=== PATIENT | male | born 1980 | race Caucasian/White ===

== ENCOUNTER 2016-09-11 12:05 | Emergency (ER) | payer BC ==
[2016-09-11 12:17] VITALS: RESP 18
--- NOTE | 2016-09-11 13:29 | ED ---
General Adult HPI - General Chief complaint: Chest Pain Stated complaint: Chest Pain Time Seen by Provider: 09/11/16 12:10 Source: EMS, RN notes reviewed, old records reviewed Mode of arrival: EMS - History of Present Illness Initial comments: This is a 36-year-old male to the ER for evaluation. This patient does presents here for evaluation of chest pain. Patient has anterior chest pain. No significant shortness of breath. Patient says some weakness and fatigue for a few days about 2-3 days. Patient has no prior history of cardiac disease. Nonsmoker, no high cholesterol or diabetes. No fevers. Patient was brought in by EMS, EMS did have improvement with pain with nitro - Related Data Home Medications Medication Instructions Recorded Confirmed ALPRAZolam [Xanax] 0.25 mg PO DAILY PRN 09/11/16 09/11/16 FLUoxetine HCL [PROzac] 20 mg PO HS 09/11/16 09/11/16 Allergies Allergy/AdvReac Type Severity Reaction Status Date / Time No Known Allergies Allergy Unverified 09/11/16 13:20 Review of Systems ROS Statement: Those systems with pertinent positive or pertinent negative responses have been documented in the HPI. ROS Other: All systems not noted in ROS Statement are negative. Past Medical History Past Medical History: Thyroid Disorder Additional Past Medical History / Comment(s): hypothryroid - not taking meds any more History of Any Multi-Drug Resistant Organisms: None Reported Past Psychological History: Anxiety, Depression Smoking Status: Never smoker Past Alcohol Use History: Occasional Past Drug Use History: None Reported General Exam General appearance: alert, in no apparent distress Head exam: Present: atraumatic, normocephalic, normal inspection Eye exam: Present: normal appearance, PERRL, EOMI. Absent: scleral icterus, conjunctival injection, periorbital swelling ENT exam: Present: normal exam, mucous membranes moist Neck exam: Present: normal inspection. Absent: tenderness, meningismus, lymphadenopathy Respiratory exam: Present: normal lung sounds bilaterally. Absent: respiratory distress, wheezes, rales, rhonchi, stridor Cardiovascular Exam: Present: regular rate, normal rhythm, normal heart sounds. Absent: systolic murmur, diastolic murmur, rubs, gallop, clicks GI/Abdominal exam: Present: soft, normal bowel sounds. Absent: distended, tenderness, guarding, rebound, rigid Extremities exam: Present: normal inspection, full ROM, normal capillary refill. Absent: tenderness, pedal edema, joint swelling, calf tenderness Back exam: Present: normal inspection Neurological exam: Present: alert, oriented X3, CN II-XII intact Psychiatric exam: Present: normal affect, normal mood Skin exam: Present: warm, dry, intact, normal color. Absent: rash Course Vital Signs 09/11/16 09/11/16 12:08 13:56 Temperature 98.3 F Pulse Rate 76 64 Respiratory 18 18 Rate Blood Pressure 124/81 117/79 O2 Sat by Pulse 92 L 96 Oximetry - Reevaluation(s) Reevaluation #1: 09/11/16 14:45 Patient's patient states the swelling his symptoms remain resolved, I level has improved from 92% Reevaluation #2: 09/11/16 14:45 Patient discussed at length. 15 minutes regarding prognosis and management of heart disease especially with nitro does help symptoms. Patient is not within the hospital at this time would like to follow-up with his family doctor EKG Findings - EKG Comments: EKG Findings:: EKG shows normal sinus rhythm rate of 63, KS 142, QRS 90, QTC 429 Medical Decision Making - Medical Decision Making 36 male the ER for evaluation of chest pain, history of family history of chest pain. Nitro did help pain although was without pain throughout entire emergency department stay, an EKG is normal x-rays normal troponin is negative. Patient would like to be discharged from the will follow-up with outpatient and return if symptoms worsen - Lab Data Result diagrams: 09/11/16 12:12 09/11/16 12:12 Lab Results 09/11/16 09/11/16 09/11/16 Range/Units 12:12 12:12 12:12 WBC 4.4 (3.8-10.6) k/uL RBC 4.55 (4.30-5.90) m/uL Hgb 14.4 (13.0-17.5) gm/dL Hct 40.8 (39.0-53.0) % MCV 89.6 (80.0-100.0) fL MCH 31.6 (25.0-35.0) pg MCHC 35.3 (31.0-37.0) g/dL RDW 12.7 (11.5-15.5) % Plt Count 231 (150-450) k/uL Neutrophils % 71 % Lymphocytes % 17 % Monocytes % 6 % Eosinophils % 3 % Basophils % 1 % Neutrophils # 3.1 (1.3-7.7) k/uL Lymphocytes # 0.8 L (1.0-4.8) k/uL Monocytes # 0.3 (0-1.0) k/uL Eosinophils # 0.1 (0-0.7) k/uL Basophils # 0.0 (0-0.2) k/uL PT (9.0-12.0) sec INR (<1.1) APTT (22.0-30.0) sec D-Dimer (<0.60) mg/L FEU Sodium 140 (137-145) mmol/L Potassium 4.1 (3.5-5.1) mmol/L Chloride 105 (98-107) mmol/L Carbon Dioxide 22 (22-30) mmol/L Anion Gap 13 mmol/L BUN 15 (9-20) mg/dL Creatinine 0.82 (0.66-1.25) mg/dL Est GFR (MDRD) Af Amer >60 (>60 ml/min/1.73 sqM) Est GFR (MDRD) Non-Af >60 (>60 ml/min/1.73 sqM) Glucose 89 (74-99) mg/dL Calcium 9.8 (8.4-10.2) mg/dL Magnesium 1.8 (1.6-2.3) mg/dL Total Bilirubin 1.2 (0.2-1.3) mg/dL AST 22 (17-59) U/L ALT 32 (21-72) U/L Alkaline Phosphatase 67 (38-126) U/L Total Creatine Kinase 42 L (55-170) U/L CK-MB (CK-2) 0.9 (0.0-2.4) ng/mL CK-MB (CK-2) Rel Index 2.1 Troponin I <0.012 (0.000-0.034) ng/mL Total Protein 7.5 (6.3-8.2) g/dL Albumin 4.7 (3.5-5.0) g/dL Lipase 74 (23-300) U/L //17 Range/Units 12:12 WBC (3.8-10.6) k/uL RBC (4.30-5.90) m/uL Hgb (13.0-17.5) gm/dL Hct (39.0-53.0) % MCV (80.0-100.0) fL MCH (25.0-35.0) pg MCHC (31.0-37.0) g/dL RDW (11.5-15.5) % Plt Count (150-450) k/uL Neutrophils % % Lymphocytes % % Monocytes % % Eosinophils % % Basophils % % Neutrophils # (1.3-7.7) k/uL Lymphocytes # (1.0-4.8) k/uL Monocytes # (0-1.0) k/uL Eosinophils # (0-0.7) k/uL Basophils # (0-0.2) k/uL PT 10.8 (9.0-12.0) sec INR 1.1 (<1.1) APTT 24.6 (22.0-30.0) sec D-Dimer 0.19 (<0.60) mg/L FEU Sodium (137-145) mmol/L Potassium (3.5-5.1) mmol/L Chloride (98-107) mmol/L Carbon Dioxide (22-30) mmol/L Anion Gap mmol/L BUN (9-20) mg/dL Creatinine (0.66-1.25) mg/dL Est GFR (MDRD) Af Amer (>60 ml/min/1.73 sqM) Est GFR (MDRD) Non-Af (>60 ml/min/1.73 sqM) Glucose (74-99) mg/dL Calcium (8.4-10.2) mg/dL Magnesium (1.6-2.3) mg/dL Total Bilirubin (0.2-1.3) mg/dL AST (17-59) U/L ALT (21-72) U/L Alkaline Phosphatase (38-126) U/L Total Creatine Kinase (55-170) U/L CK-MB (CK-2) (0.0-2.4) ng/mL CK-MB (CK-2) Rel Index Troponin I (0.000-0.034) ng/mL Total Protein (6.3-8.2) g/dL Albumin (3.5-5.0) g/dL Lipase (23-300) U/L - Radiology Data Radiology results: report reviewed (Chest x-ray is negative for acute disease), image reviewed Disposition Clinical Impression: Chest pain Disposition: HOME SELF-CARE Condition: Good Instructions: Chest Pain (ED) Referrals: Raúl Cho MD [Primary Care Provider] - 1-2 days
[2016-09-11] MEDS ORDERED: SODIUM CHLORIDE 0.9% 1,000 ML IV STA (13:31)
[2016-09-11 13:52] LABS: Basophils % (A) 1 %; CH 31.8; CHCM 35.6; Eosinophils # (A) 0.1 k/uL (0-0.7); Eosinophils % (A) 3 %; HCT 40.8 % (39.0-53.0); HDW 2.77; HGB 14.4 gm/dL (13.0-17.5); Luc # (Auto) 0.07; Luc % (Auto) 2; Lymphocytes # (A) 0.8 k/uL (1.0-4.8); Lymphocytes % (A) 17 %; MCH 31.6 pg (25.0-35.0); MCHC 35.3 g/dL (31.0-37.0); MCV 89.6 fL (80.0-100.0); Mean Platelet Volume 7.4; Monocytes # (A) 0.3 k/uL (0-1.0); Monocytes % (A) 6 %; Neutrophils # (A) 3.1 k/uL (1.3-7.7); Neutrophils % (A) 71 %; RBC 4.55 m/uL (4.30-5.90); RDW 12.7 % (11.5-15.5); WBC 4.4 k/uL (3.8-10.6); WBC (Perox) 4.42
--- NOTE | 2016-09-11 13:54 | XR ---
EXAMINATION TYPE: XR chest 2V DATE OF EXAM: 09/11/2016 1:49 PM COMPARISON: NONE TECHNIQUE: PA and lateral views submitted. HISTORY: Weakness FINDINGS: The lungs are clear and there is no pneumothorax, pleural effusion, or focal pneumonia. Pulmonary a rteries are prominent in size. No overt failure. IMPRESSION: 1. No acute process. Prominent pulmonary arteries can be seen with pulmonary arterial hypertension. U nderlying adenopathy not entirely excluded consider follow-up CT chest.
[2016-09-11 13:59] LABS: INR 1.1 (<1.1); Partial Thromboplastin Time 24.6 sec (22.0-30.0); Prothrombin Time 10.8 sec (9.0-12.0)
[2016-09-11 14:03] LABS: ALT 32 U/L (21-72); AST 22 U/L (17-59); Alkaline Phosphatase 67 U/L (38-126); Anion Gap 13 mmol/L; Blood Urea Nitrogen 15 mg/dL (9-20); Calcium 9.8 mg/dL (8.4-10.2); Carbon Dioxide 22 mmol/L (22-30); Chloride 105 mmol/L (98-107); Glucose 89 mg/dL (74-99); Magnesium 1.8 mg/dL (1.6-2.3); Non-African American GFR(MDRD) >60 (>60 ml/min/1.73 sqM); Potassium 4.1 mmol/L (3.5-5.1); Sodium 140 mmol/L (137-145); Total Bilirubin 1.2 mg/dL (0.2-1.3); Total Protein 7.5 g/dL (6.3-8.2)
[2016-09-11 14:11] LABS: Creatine Kinase 42 U/L (55-170)
[2016-09-11 14:23] LABS: Creatine Kinase MB 0.9 ng/mL (0.0-2.4); Troponin I <0.012 ng/mL (0.000-0.034)
[2016-09-11 15:11] VITALS: BP 127/69; PULSE 67; TEMP 97.8
== END 2016-09-11 15:11 | disposition home or self-care (01) ==
LOC: EC 12:05
DX: R07.89 Other chest pain (principal); R53.1 Weakness; F32.9 Major depressive disorder, single episode, unspecified; F41.9 Anxiety disorder, unspecified; Z79.899 Other long term (current) drug therapy; Z82.49 Family history of ischemic heart disease and other diseases of the circulatory system
CPT/HCPCS: 36415; 71020; 80053; 82550; 82553; 83690; 83735; 84484; 85025; 85379; 85610; 85730; 93005; 96360; 99285

== ENCOUNTER → 2016-10-01 | Outpatient (CLI) | payer BC ==
--- NOTE | 2016-10-12 16:02 | CT ---
EXAMINATION TYPE: CT chest w con DATE OF EXAM: 10/01/2016 COMPARISON: Prior CT chest 03/09/2016 HISTORY: Follow up swollen lymph nodes from prior study per patient CT DLP: 522.4 mGycm Automated exposure control for dose reduction was used. CONTRAST: CT scan of the chest is performed with IV Contrast, patient injected with 100 mL of Omnipaque 300. FINDINGS: LUNGS: The lungs are remarkable for nodule in the lingula which is stable measuring approximately 6 m m. Apical nodular density may be insurance representative of small amount of pleural thickening is likely uncha nged. There is no pleural effusion or pneumothorax seen. The tracheobronchial tree is patent. MEDIASTINUM: Hilar adenopathy, subcarinal nodes are again seen, abnormal nodes present in the prevasc ular space, precarinal and retrocaval pretracheal region as on prior exam. No axillary adenopathy. AORTA: No additional significant abnormality is seen. OTHER: Small retroperitoneal nodes are also present. IMPRESSION: Findings could represent granulomatous disease either infectious or noninfectious, consi amado sarcoid. Follow-up is recommended.
== END | disposition home or self-care (01) ==
LOC: RADCTMAIN 18:48
PROVIDERS: ATTEND Internal Medicine Critical Care Medicine
DX: R59.0 Localized enlarged lymph nodes (principal)
CPT/HCPCS: 71260; Q9967

== ENCOUNTER → 2016-10-21 | Outpatient (CLI) | payer BC ==
[2016-10-21 11:18] LABS: ALT 36 U/L (21-72); AST 22 U/L (17-59); Alkaline Phosphatase 84 U/L (38-126); Anion Gap 11 mmol/L; Blood Urea Nitrogen 23 mg/dL (9-20); Calcium 9.8 mg/dL (8.4-10.2); Carbon Dioxide 24 mmol/L (22-30); Chloride 106 mmol/L (98-107); Glucose 92 mg/dL (74-99); Non-African American GFR(MDRD) >60 (>60 ml/min/1.73 sqM); Potassium 4.8 mmol/L (3.5-5.1); Sodium 141 mmol/L (137-145); Total Bilirubin 0.9 mg/dL (0.2-1.3); Total Protein 7.7 g/dL (6.3-8.2)
== END | disposition home or self-care (01) ==
LOC: LABWHC1 10:34
PROVIDERS: ATTEND Internal Medicine Critical Care Medicine
DX: D86.9 Sarcoidosis, unspecified (principal); R59.0 Localized enlarged lymph nodes
CPT/HCPCS: 36415; 80053; 82164; 85652

== ENCOUNTER 2016-11-04 09:48 | Day surgery (SDC) | payer BC ==
[2016-11-02 08:47] VITALS: BMI 33.0
[~2016-11-04 09:48] MED LIST: DEXAMETHASONE SOD PHOSPHATE 10 MG/ML 1 ML VIAL IV ONE; LIDOCAINE 1% 20 ML VIAL (10MG/ML) FOR IV START INTRADERMA PRN; ONDANSETRON 4 MG/2 ML VIAL IVP ONE; Pre Op ABX Message 1 EACH MISC MISCELLANE ONE; SCOPOLAMINE 1.5MG/72HR PATCH TRANSDERM ONE
[2016-11-04] MEDS ORDERED: LIDOCAINE 1% 20 ML VIAL (10MG/ML) FOR IV START INTRADERMA ONE (10:02)
[2016-11-04] MEDS: LACTATED RINGERS 1,000 ML IV SCH ×3 (10:02→10:47)
[2016-11-04 10:16] LABS: Basophils % (A) 1 %; CH 32.1; CHCM 35.3; Eosinophils # (A) 0.2 k/uL (0-0.7); Eosinophils % (A) 4 %; HCT 43.3 % (39.0-53.0); HDW 2.75; Luc # (Auto) 0.06; Luc % (Auto) 1; Lymphocytes # (A) 0.8 k/uL (1.0-4.8); Lymphocytes % (A) 15 %; MCH 31.6 pg (25.0-35.0); MCHC 34.6 g/dL (31.0-37.0); MCV 91.4 fL (80.0-100.0); Mean Platelet Volume 7.3; Monocytes # (A) 0.4 k/uL (0-1.0); Monocytes % (A) 7 %; Neutrophils # (A) 3.7 k/uL (1.3-7.7); Neutrophils % (A) 73 %; RBC 4.74 m/uL (4.30-5.90); RDW 13.6 % (11.5-15.5); WBC 5.1 k/uL (3.8-10.6); WBC (Perox) 4.69
[2016-11-04] MEDS ORDERED: ceFAZolin 2 GM in SODIUM CHLORIDE 0.9% 100 ML IVPB STA (10:38)
[2016-11-04] MEDS ORDERED: NEOSTIGMINE 1 MG/ML 10 ML VIAL ONE (10:47)
[2016-11-04] MEDS ORDERED: MIDAZOLAM 2 MG/2 ML VIAL ONE (10:47)
[2016-11-04] MEDS ORDERED: fentaNYL (PF) 50 MCG/ML 2 ML AMP ONE (10:47)
[2016-11-04] MEDS ORDERED: SUCCINYLCHOLINE CHLORIDE 100 MG/5 ML SYR IV ONE (10:47)
[2016-11-04] MEDS ORDERED: GLYCOPYRROLATE 0.2 MG/ML 2 ML VIAL ONE (10:47)
[2016-11-04] MEDS ORDERED: PROPOFOL 10 MG/ML 20 ML VIAL IV ONE (10:47)
[2016-11-04] MEDS ORDERED: ROCURONIUM BROMIDE 10 MG/ML 10 ML VIAL IV ONE (10:47)
[2016-11-04] MEDS ORDERED: ePHEDrine 50 MG/ML 1 ML AMP ONE (10:47)
[2016-11-04] MEDS ORDERED: LIDOCAINE 1% INJ 10MG/ML (20 ML MDV) ONE (10:47)
[2016-11-04] MEDS ORDERED: LACTATED RINGERS 1,000 ML IV ONE ×2 (12:18→14:12)
[2016-11-04 13:23] VITALS: TEMP 97.4
[2016-11-04] MEDS: HYDROmorphone 1 MG/ML 1 ML SYRINGE IVP PRN ×4 (13:25→13:48)
--- NOTE | 2016-11-04 13:49 | XR ---
EXAMINATION TYPE: XR chest 1V portable DATE OF EXAM: 11/04/2016 COMPARISON: 09/11/2016 HISTORY: Lymphadenopathy TECHNIQUE: Single frontal view of the chest is obtained. FINDINGS: Persistent bilateral hilar and mediastinal enlargement. The heart is enlarged. No pleural effusion. No pneumothorax. Arthropathy of the shoulders. No overt failure. IMPRESSION: 1. Bilateral hilar and mediastinal enlargement correlate for adenopathy. Findings appear increased fr om previous exam.
[2016-11-04 14:46] VITALS: RESP 18
[2016-11-04] MEDS ORDERED: HYDROcodone/APAP 5-325MG 1 EACH TAB PO ONE (14:49)
[2016-11-04 16:05] VITALS: BP 136/74; PULSE 75
--- NOTE | 2016-11-05 09:56 | OP ---
DATE OF SURGERY: 11/04/2016 PREOPERATIVE DIAGNOSIS: Mediastinal lymphadenopathy. POSTOPERATIVE DIAGNOSIS: Mediastinal lymphadenopathy. PROCEDURE: Mediastinoscopy with lymph node biopsy. SURGEON: Lv Boogie M.D. SASH REPAIRER: None. ANESTHESIA: General anesthesia. COMPLICATIONS: None. ESTIMATED BLOOD LOSS: Less than 20 mL. SPECIMEN: "4R" lymph nodes. INDICATIONS: The patient is a 36 year old male who was found to have mediastinal lymphadenopathy on CT scan of the chest. Mediastinoscopy with lymph node biopsy was requested. The risks, benefits and alternatives of the procedure were discussed with the patient. All questions were answered. Consent obtained. FINDINGS: Enlarged, firm lymph nodes were noted in Stage 4R. Frozen section was consistent with granuloma. PROCEDURE IN DETAIL: The patient was taken to the operating room and placed supine on the operating room table. After administration of general anesthesia , he was prepped and draped in the usual sterile fashion. A cervical collar incision was created one fingerbreadth above the sternal notch. Dissection was taken down through the subcutaneous tissue and fat. Strap muscles were divided in the midline. The trachea was encountered. The pretracheal fascia was incised. Blunt dissection was then performed in the pretracheal space below the sternum and below the innominate artery. The mediastinoscope was then inserted. It was attached to the video screen. Blunt dissection was performed to the right of the trachea in station 4R. Large firm appearing lymph nodes were identified. A needle was inserted and then aspirated to ensure no return of blood. Multiple biopsies were obtained in this area. A sample was sent to pathology and frozen section was consistent with granulomatous disease. The pathologist felt that this was benign tissue. The remainder of the specimen was then sent for permanent as well as microbiology. Hemostasis was assured. The wound was then closed in layers. Sterile dressing was applied. The patient appeared to tolerate the procedure well. There were no immediate complications. He returned to the recovery room in stable condition. VERA
== END 2016-11-04 16:08 | disposition home or self-care (01) ==
LOC: OR 09:48
PROVIDERS: ATTEND Surgery
DX: I89.8 Other specified noninfective disorders of lymphatic vessels and lymph nodes (principal); E78.5 Hyperlipidemia, unspecified; F41.9 Anxiety disorder, unspecified; Z79.899 Other long term (current) drug therapy; Z87.891 Personal history of nicotine dependence
CPT/HCPCS: 88305; 85025; 88312; 88331; 87070; 87205; 87075; 87116; 87102; 87206; 71010; 38500; J2250; J1100; J2710; J0690; J2405; J2001; J3010; J1170; J0330; J2704

== ENCOUNTER 2016-11-12 00:37 | Observation (INO) | payer BC ==
[2016-11-12 00:44] VITALS: RESP 18
[2016-11-12] MEDS ORDERED: NITROGLYCERIN OINT 1 INCH/GM PACKET TOPICAL STA (01:17)
[2016-11-12] MEDS ORDERED: ASPIRIN 81 MG CHEW PO STA (01:17)
--- NOTE | 2016-11-12 01:21 | ED ---
General Adult HPI - General Chief complaint: Chest Pain Stated complaint: Chest Pain Time Seen by Provider: 11/12/16 00:53 Source: patient, family, EMS, RN notes reviewed Mode of arrival: EMS Limitations: no limitations - History of Present Illness Initial comments: Patient is a pleasant 36-year-old male presenting to the emergency department complaining of chest discomfort. Onset of symptoms was less than an hour prior to arrival. Patient was lying in bed with sharp discomfort. Patient was a little bit sweaty. No dyspnea or nausea. Symptoms lasted around a half an hour and have resolved. There was some radiation towards left arm. Patient did have similar symptoms previously and was evaluated in the with negative evaluation. Patient did recently have mediastinoscopy done last week for lymph node evaluation. Patient was started on antibiotics yesterday for possible infection of the affected site. Currently patient is symptom-free. Patient has had 2 CT scans done of his chest in the last year. - Related Data Home Medications Medication Instructions Recorded Confirmed ALPRAZolam [Xanax] 0.25 mg PO DAILY PRN 09/11/16 11/04/16 FLUoxetine HCL [PROzac] 40 mg PO HS 11/02/16 11/04/16 Previous Rx's Medication Instructions Recorded HYDROcodone/APAP 5-325MG [[place] 1 tab PO Q4HR PRN #20 tab 11/04/16 5-325] Allergies Allergy/AdvReac Type Severity Reaction Status Date / Time No Known Allergies Allergy Unverified 11/12/16 00:44 Review of Systems ROS Statement: Those systems with pertinent positive or pertinent negative responses have been documented in the HPI. ROS Other: All systems not noted in ROS Statement are negative. Constitutional: Denies: fever, chills Eyes: Denies: eye pain ENT: Denies: ear pain Respiratory: Denies: dyspnea Cardiovascular: Reports: chest pain Endocrine: Denies: fatigue Gastrointestinal: Denies: abdominal pain, nausea Genitourinary: Denies: dysuria Musculoskeletal: Denies: back pain Skin: Reports: rash (Mild redness in the upper sternal region) Neurological: Denies: weakness Past Medical History Past Medical History: Thyroid Disorder Additional Past Medical History / Comment(s): hypothryroid - not taking meds any more History of Any Multi-Drug Resistant Organisms: None Reported Additional Past Surgical History / Comment(s): neck biopsy 10/2016 Past Psychological History: Anxiety, Depression Smoking Status: Never smoker Past Alcohol Use History: Occasional Past Drug Use History: None Reported General Exam Limitations: no limitations General appearance: alert, in no apparent distress Head exam: Present: atraumatic Eye exam: Present: normal appearance, PERRL ENT exam: Present: normal oropharynx Neck exam: Present: normal inspection Respiratory exam: Present: normal lung sounds bilaterally, other (Upper sternum with horizontal incision with mild redness and swelling). Absent: chest wall tenderness Cardiovascular Exam: Present: regular rate, normal rhythm Expanded Peripheral pulses: 2+: Radial (R), Radial (L), Posterior Tibialis (R), Posterior Tibialis (L) GI/Abdominal exam: Present: soft. Absent: tenderness Extremities exam: Present: normal inspection. Absent: pedal edema, calf tenderness Neurological exam: Present: alert Psychiatric exam: Present: normal affect, normal mood Skin exam: Present: normal color Course Vital Signs 11/12/16 11/12/16 11/12/16 00:39 01:39 01:44 Temperature 97.8 F Pulse Rate 18 L 67 65 Respiratory 18 18 18 Rate Blood Pressure 129/79 129/79 126/78 O2 Sat by Pulse 95 99 97 Oximetry 11/12/16 11/12/16 02:02 02:22 Temperature 98.6 F Pulse Rate 65 83 Respiratory 18 Rate Blood Pressure 119/71 116/67 O2 Sat by Pulse 95 95 Oximetry EKG Findings - EKG Comments: EKG Findings:: Normal sinus rhythm 69. [place] 134. QRS 90. QT 420. QTc 450. Normal axis. Normal QRS. Normal ST-T. Medical Decision Making - Medical Decision Making Patient reexamined and resting comfortably in bed. Patient updated on results and plan. Case discussed with Dr. Corea, who will admit for Dr. gilbert, who covers for Dr. Cho. - Lab Data Result diagrams: 11/12/16 00:50 11/12/16 00:50 Lab Results 11/12/16 11/12/16 11/12/16 Range/Units 00:50 00:50 00:50 WBC 5.3 (3.8-10.6) k/uL RBC 4.25 L (4.30-5.90) m/uL Hgb 13.5 (13.0-17.5) gm/dL Hct 38.4 L (39.0-53.0) % MCV 90.2 (80.0-100.0) fL MCH 31.7 (25.0-35.0) pg MCHC 35.2 (31.0-37.0) g/dL RDW 13.6 (11.5-15.5) % Plt Count 248 (150-450) k/uL Neutrophils % 62 % Lymphocytes % 24 % Monocytes % 8 % Eosinophils % 3 % Basophils % 1 % Neutrophils # 3.3 (1.3-7.7) k/uL Lymphocytes # 1.3 (1.0-4.8) k/uL Monocytes # 0.4 (0-1.0) k/uL Eosinophils # 0.2 (0-0.7) k/uL Basophils # 0.0 (0-0.2) k/uL PT (9.0-12.0) sec INR (<1.2) APTT (22.0-30.0) sec D-Dimer (<0.60) mg/L FEU Sodium 137 (137-145) mmol/L Potassium 3.9 (3.5-5.1) mmol/L Chloride 103 (98-107) mmol/L Carbon Dioxide 21 L (22-30) mmol/L Anion Gap 13 mmol/L BUN 28 H (9-20) mg/dL Creatinine 0.80 (0.66-1.25) mg/dL Est GFR (MDRD) Af Amer >60 (>60 ml/min/1.73 sqM) Est GFR (MDRD) Non-Af >60 (>60 ml/min/1.73 sqM) Glucose 85 (74-99) mg/dL Calcium 9.7 (8.4-10.2) mg/dL Magnesium 1.7 (1.6-2.3) mg/dL Total Bilirubin 0.9 (0.2-1.3) mg/dL AST 26 (17-59) U/L ALT 54 (21-72) U/L Alkaline Phosphatase 79 (38-126) U/L Total Creatine Kinase 42 L (55-170) U/L CK-MB (CK-2) 1.0 (0.0-2.4) ng/mL CK-MB (CK-2) Rel Index 2.4 Troponin I <0.012 (0.000-0.034) ng/mL Total Protein 7.1 (6.3-8.2) g/dL Albumin 4.4 (3.5-5.0) g/dL 11/12/16 Range/Units 00:50 WBC (3.8-10.6) k/uL RBC (4.30-5.90) m/uL Hgb (13.0-17.5) gm/dL Hct (39.0-53.0) % MCV (80.0-100.0) fL MCH (25.0-35.0) pg MCHC (31.0-37.0) g/dL RDW (11.5-15.5) % Plt Count (150-450) k/uL Neutrophils % % Lymphocytes % % Monocytes % % Eosinophils % % Basophils % % Neutrophils # (1.3-7.7) k/uL Lymphocytes # (1.0-4.8) k/uL Monocytes # (0-1.0) k/uL Eosinophils # (0-0.7) k/uL Basophils # (0-0.2) k/uL PT 10.5 (9.0-12.0) sec INR 1.0 (<1.2) APTT 24.8 (22.0-30.0) sec D-Dimer 0.46 (<0.60) mg/L FEU Sodium (137-145) mmol/L Potassium (3.5-5.1) mmol/L Chloride (98-107) mmol/L Carbon Dioxide (22-30) mmol/L Anion Gap mmol/L BUN (9-20) mg/dL Creatinine (0.66-1.25) mg/dL Est GFR (MDRD) Af Amer (>60 ml/min/1.73 sqM) Est GFR (MDRD) Non-Af (>60 ml/min/1.73 sqM) Glucose (74-99) mg/dL Calcium (8.4-10.2) mg/dL Magnesium (1.6-2.3) mg/dL Total Bilirubin (0.2-1.3) mg/dL AST (17-59) U/L ALT (21-72) U/L Alkaline Phosphatase (38-126) U/L Total Creatine Kinase (55-170) U/L CK-MB (CK-2) (0.0-2.4) ng/mL CK-MB (CK-2) Rel Index Troponin I (0.000-0.034) ng/mL Total Protein (6.3-8.2) g/dL Albumin (3.5-5.0) g/dL - Radiology Data Radiology results: image reviewed (Chest x-ray shows bilateral hilar enlargement , likely adenopathy.) Disposition Clinical Impression: Chest pain Disposition: ADMITTED IP TO THIS [facility] Referrals: Raúl Cho MD [Primary Care Provider] - 1-2 days Decision Time: 03:16
[2016-11-12] MEDS ORDERED: NITROGLYCERIN SL TABS 0.4 MG TAB SUBLINGUAL STA (01:41)
[2016-11-12 01:42] LABS: Basophils % (A) 1 %; CH 32.3; CHCM 35.9; Eosinophils # (A) 0.2 k/uL (0-0.7); Eosinophils % (A) 3 %; HCT 38.4 % (39.0-53.0); HGB 13.5 gm/dL (13.0-17.5); Luc # (Auto) 0.16; Luc % (Auto) 3; Lymphocytes # (A) 1.3 k/uL (1.0-4.8); Lymphocytes % (A) 24 %; MCH 31.7 pg (25.0-35.0); MCHC 35.2 g/dL (31.0-37.0); MCV 90.2 fL (80.0-100.0); Mean Platelet Volume 7.5; Monocytes # (A) 0.4 k/uL (0-1.0); Monocytes % (A) 8 %; Neutrophils # (A) 3.3 k/uL (1.3-7.7); Neutrophils % (A) 62 %; RBC 4.25 m/uL (4.30-5.90); RDW 13.6 % (11.5-15.5); WBC 5.3 k/uL (3.8-10.6); WBC (Perox) 4.94
[2016-11-12 01:56] LABS: Partial Thromboplastin Time 24.8 sec (22.0-30.0); Prothrombin Time 10.5 sec (9.0-12.0)
[2016-11-12 02:05] LABS: ALT 54 U/L (21-72); AST 26 U/L (17-59); Alkaline Phosphatase 79 U/L (38-126); Anion Gap 13 mmol/L; Blood Urea Nitrogen 28 mg/dL (9-20); Calcium 9.7 mg/dL (8.4-10.2); Carbon Dioxide 21 mmol/L (22-30); Chloride 103 mmol/L (98-107); Glucose 85 mg/dL (74-99); Magnesium 1.7 mg/dL (1.6-2.3); Non-African American GFR(MDRD) >60 (>60 ml/min/1.73 sqM); Potassium 3.9 mmol/L (3.5-5.1); Sodium 137 mmol/L (137-145); Total Bilirubin 0.9 mg/dL (0.2-1.3); Total Protein 7.1 g/dL (6.3-8.2)
[2016-11-12 02:08] LABS: Creatine Kinase 42 U/L (55-170)
[2016-11-12 02:19] LABS: Troponin I <0.012 ng/mL (0.000-0.034)
--- NOTE | 2016-11-12 02:35 | XR ---
EXAM: XR Chest, 2 Views CLINICAL HISTORY: left sided chest pain today radiating to left arm, history of enlarged heart, biopses of swollen lymph nodes in chest, history of sarcoidosis TECHNIQUE: Frontal and lateral views of the chest. COMPARISON: Chest x-ray 11/04/16 FINDINGS: Lungs: Slightly hypoventilatory lungs. Lungs clear. Pleural space: Unremarkable. No pneumothorax. Heart: Unremarkable. No cardiomegaly. Mediastinum: Unremarkable. Bones/joints: Unremarkable. Lymph nodes: Bilateral hilar enlargement, likely adenopathy, is slightly increased from prior study. IMPRESSION: 1. Slightly hypoventilatory lungs. Lungs clear. 2. Bilateral hilar enlargement, likely adenopathy, is slightly increased from prior study.
[2016-11-12] MEDS ORDERED: NITROGLYCERIN SL TABS 0.4 MG TAB SUBLINGUAL PRN (03:16)
[2016-11-12 04:20] VITALS: BMI 33.7
[2016-11-12] MEDS: NITROGLYCERIN OINT 1 INCH/GM PACKET TOPICAL SCH ×2 (05:55→13:37)
[2016-11-12 07:54] LABS: Creatine Kinase 36 U/L (55-170)
[2016-11-12 08:07] LABS: Troponin I <0.012 ng/mL (0.000-0.034)
--- NOTE | 2016-11-12 10:42 | P.CRDCN ---
History of Present Illness Consult date: 11/12/16 History of present illness: This is a 36-year-old gentleman with history of hypercholesterolemia who had a mediastinal biopsy for enlarged lymph nodes about a week or so ago. Patient woke up last night with recurrent chest pains. The pain is felt in the precordial area and sharp in nature, lasting about 20 minutes or so. Patient became very anxious. Denied any nausea vomiting or sweating. He might have been mildly short of breath. After a few recurrence of the pain patient came to the emergency room. Since admission here patient hasn't had any pains. He doesn't think the pain is related to the recent surgery. Doesn't increase on deep breathing or movements of the chest. His EKGs did not reveal any acute changes. Cardiac enzymes studies are negative. Patient is being scheduled for a regular stress test and echocardiogram. He was concerned that previous chest x-ray suggestive that his heart is enlarged. If the tests are negative, patient could be discharged home. Review of Systems As per the chart Past Medical History Past Medical History: Thyroid Disorder Additional Past Medical History / Comment(s): hypothryroid - not taking meds any more History of Any Multi-Drug Resistant Organisms: None Reported Additional Past Surgical History / Comment(s): neck biopsy 10/2016 Past Anesthesia/Blood Transfusion Reactions: No Reported Reaction Smoking Status: Former smoker - Past Family History Father Additional Family Medical History / Comment(s): arthritis Mother Family Medical History: Cancer Additional Family Medical History / Comment(s): breast CA Medications and Allergies Home Medications Medication Instructions Recorded Confirmed Type ALPRAZolam [Xanax] 0.25 mg PO DAILY PRN 09/11/16 11/12/16 History FLUoxetine HCL [PROzac] 40 mg PO HS 11/02/16 11/12/16 History Cephalexin [Keflex] 500 mg PO Q12HR 11/12/16 11/12/16 History Allergies Allergy/AdvReac Type Severity Reaction Status Date / Time No Known Allergies Allergy Verified 11/12/16 07:48 Physical Exam Vitals: Vital Signs Temp Pulse Pulse Resp BP BP Pulse Ox 11/12/16 08:00 97.7 F 64 18 116/69 96 11/12/16 04:00 98 F 66 18 129/80 96 11/12/16 03:19 98.1 F 65 18 131/75 96 11/12/16 02:22 83 116/67 95 11/12/16 02:02 98.6 F 65 18 119/71 95 11/12/16 01:44 65 18 126/78 97 11/12/16 01:39 67 18 129/79 99 11/12/16 00:39 97.8 F 18 L 18 129/79 95 Intake and Output 11/11/16 11/12/16 11/12/16 22:59 06:59 14:59 Other: # Voids 1 Weight 106.5 kg GENERAL EXAM: Patient is alert and oriented and doesn't appear to be in any acute distress HEENT: Normocephalic. Normal reaction of pupils, equal size, normal range of extraocular motion. No erythema or exudates in the throat. NECK: No masses, no nuchal rigidity. CHEST: No chest wall deformity. LUNGS: Equal air entry with no crackles or wheeze. HEART: S1 and S2 normal with no audible mumurs or gallops. Regular rhythm, femorals equal on both sides.. ABDOMEN: No hepatosplenomegaly, normal bowel sounds, no guarding or rigidity. SKIN: No rashes CENTRAL NERVOUS SYSTEM: No focal deficits. EXTREMITIES: No cyanosis, clubbing or edema. Results 11/12/16 00:50 11/12/16 00:50 Cardiac Enzymes 11/12/16 11/12/16 11/12/16 Range/Units 00:50 00:50 06:59 AST 26 (17-59) U/L CK-MB (CK-2) 1.0 1.0 (0.0-2.4) ng/mL Troponin I <0.012 <0.012 (0.000-0.034) ng/mL Coagulation 11/12/16 Range/Units 00:50 PT 10.5 (9.0-12.0) sec APTT 24.8 (22.0-30.0) sec CBC 11/12/16 Range/Units 00:50 WBC 5.3 (3.8-10.6) k/uL RBC 4.25 L (4.30-5.90) m/uL Hgb 13.5 (13.0-17.5) gm/dL Hct 38.4 L (39.0-53.0) % Plt Count 248 (150-450) k/uL Comprehensive Metabolic Panel 11/12/16 Range/Units 00:50 Sodium 137 (137-145) mmol/L Potassium 3.9 (3.5-5.1) mmol/L Chloride 103 (98-107) mmol/L Carbon Dioxide 21 L (22-30) mmol/L BUN 28 H (9-20) mg/dL Creatinine 0.80 (0.66-1.25) mg/dL Glucose 85 (74-99) mg/dL Calcium 9.7 (8.4-10.2) mg/dL AST 26 (17-59) U/L ALT 54 (21-72) U/L Alkaline Phosphatase 79 (38-126) U/L Total Protein 7.1 (6.3-8.2) g/dL Albumin 4.4 (3.5-5.0) g/dL Current Medications Generic Name Dose Route Start Last Admin Trade Name Freq PRN Reason Stop Dose Admin Aspirin 325 mg 11/13/16 09:00 Aspirin PO DAILY [facility] Nitroglycerin 1 inch 11/12/16 06:00 11/12/16 05:55 Nitro-Bid Oint TOPICAL Not Given Q6HR [facility] Nitroglycerin 0.4 mg 11/12/16 03:16 Nitrostat SUBLINGUAL Q5M PRN Chest Pain Sodium Chloride 10 ml 11/12/16 09:00 Saline Flush IV BID ROBERT Intake and Output 11/11/16 11/12/16 11/12/16 22:59 06:59 14:59 Other: # Voids 1 Weight 106.5 kg 11/12/16 00:50 11/12/16 00:50 EKG Interpretations (text) Sinus rhythm Assessment and Plan (1) Hypercholesteremia Status: Acute (2) Chest pain Status: Acute (3) Mediastinal lymphadenopathy Status: Acute Plan: Patient chest pain appeared to be atypical. Patient will be evaluated by echocardiogram and stress test. Further recommendations depend upon the findings on the tests.
[2016-11-12 12:19] VITALS: BP 112/78; PULSE 68; TEMP 98.1
--- NOTE | 2016-11-12 12:45 | P.STRESS ---
- Stress Test Note Stress Test Results/Findings: Exam Performed: stress test Exam Date: 11/12/16 Reason for Exam: CP Height: 5 ft 10 in Weight: 106.5 kg Protocol: BEN Stage: 3 Duration of Exercise: 7:00 Resting Heart Rate: 76 Resting Blood Pressure: 135/45 Maximum Achieved Heart Rate: 155 Maximum Achieved Blood Pressure: 164/79 85% PMHR: 155 100% PMHR: 182 METS: 8.5 Technologist Comment: Stress Test Results/Findings: Resting EKG shows a normal sinus rhythm with normal ST-T waves. No ST segment depression suggestive of ischemia was noted. No dysrhythmias were noted. She did not complain of any chest pain during the test. Conclusion. The stress EKG is not suggestive of ischemia.
[2016-11-12 13:19] LABS: Creatine Kinase 41 U/L (55-170)
--- NOTE | 2016-11-12 13:27 | ECHOF ---
Referral Reason:Chest pain and cardiomyopathy MEASUREMENTS -------- HEIGHT: 177.8 cm WEIGHT: 106.1 kg BP: 116/69 IVSd: 1.3 cm (0.6 - 1.1) LVIDd: 4.4 cm (3.9 - 5.3) LVPWd: 1.4 cm (0.6 - 1.1) IVSs: 1.5 cm LVIDs: 3.2 cm LVPWs: 1.7 cm Ao Diam: 3.4 cm (2.0 - 3.7) AV Cusp: 2.2 cm (1.5 - 2.6) LA Diam: 2.8 cm (2.7 - 3.8) MV EXCURSION: 20.824 mm (> 18.000) MV EF SLOPE: 189 mm/s (70 - 150) EPSS: 1.6 cm MV E Dominic: 0.98 m/s MV DecT: 185 ms MV A Dominic: 0.72 m/s MV E/A Ratio: 1.36 RAP: 5.00 mmHg RVSP: 25.50 mmHg FINDINGS -------- Sinus rhythm. This was a technically good study. There is mild concentric left ventricular hypertrophy. Overall left ventricular systolic function is normal with, an EF between 55 - 60 %. The right ventricle is normal in size and function. The left atrium is normal in size. The right atrium is normal in size. The aortic valve is trileaflet, and appears structurally normal. No aortic stenosis or regurgitation. Mild mitral regurgitation is present. Mild tricuspid regurgitation present. The right ventricular systolic pressure, as measured by Doppler, is 25.50mmHg. Pulmonic valve appears structurally normal. The aortic root size is normal. The pericardium is normal. CONCLUSIONS -------- 1. Sinus rhythm. 2. Mild tricuspid regurgitation present. 3. The right ventricular systolic pressure, as measured by Doppler, is 25.50mmHg. 4. Pulmonic valve appears structurally normal. 5. The aortic root size is normal. 6. The pericardium is normal. 7. This was a technically good study. 8. There is mild concentric left ventricular hypertrophy. 9. Overall left ventricular systolic function is normal with, an EF between 55 - 60 %. 10. The right ventricle is normal in size and function. 11. The left atrium is normal in size. 12. The right atrium is normal in size. 13. The aortic valve is trileaflet, and appears structurally normal. No aortic stenosis or regurgitation. 14. Mild mitral regurgitation is present. BRANDS EDITOR: Beulah Ruiz RDCS
[2016-11-12 13:32] LABS: Creatine Kinase MB 1.2 ng/mL (0.0-2.4); Troponin I <0.012 ng/mL (0.000-0.034)
--- NOTE | 2016-11-12 14:27 | P.HPIM ---
History of Present Illness This is a 36-year-old gentleman with history of hypercholesterolemia who had a mediastinal biopsy for enlarged lymph nodes about a week ago. Patient woke up last night with recurrent chest pains first episode lasted about 45 minutes and the second one lasted about 20 minutes. The pain is felt in the precordial area and sharp in nature, radiating to the left arm, some shortness of breath every appears to be related to his anxiety denied any lightheadedness. Patient the chest pain is nonpleuritic and not associated with food. . Denied any nausea vomiting or sweating. He might have been mildly short of breath. A Since admission here patient hasn't had any pains. He doesn't think the pain is related to the recent surgery. Doesn't increase on deep breathing or movements of the chest. His EKGs did not reveal any acute changes. Cardiac enzymes studies are negative. Patient underwent stress testing and if that is negative patient will be discharged today ration probably had anxiety and related chest pain. Patient had an echo cardiac exam which did not show any significant abnormality. Review of Systems REVIEW OF SYSTEMS: CONSTITUTIONAL: No fever, no malaise, no fatigue. HEENT: No recent visual problems or hearing problems. Denied any sore throat. CARDIOVASCULAR: No orthopnea, PND, no palpitations, no syncope. PULMONARY: No shortness of breath, no cough, no hemoptysis. GASTROINTESTINAL: No diarrhea, no nausea, no vomiting, no abdominal pain. Normoactive bowel sounds. NEUROLOGICAL: No headaches, no weakness, no numbness. HEMATOLOGICAL: Denies any bleeding or petechiae. GENITOURINARY: Denies any burning micturition, frequency, or urgency. MUSCULOSKELETAL/RHEUMATOLOGICAL: Denies any joint pain, swelling, or any muscle pain. ENDOCRINE: Denies any polyuria or polydipsia. The rest of the 14-point review of systems is negative. Past Medical History Past Medical History: Thyroid Disorder Additional Past Medical History / Comment(s): hypothryroid - not taking meds any more History of Any Multi-Drug Resistant Organisms: None Reported Additional Past Surgical History / Comment(s): neck biopsy 10/2016 Past Anesthesia/Blood Transfusion Reactions: No Reported Reaction Smoking Status: Former smoker - Past Family History Father Additional Family Medical History / Comment(s): arthritis Mother Family Medical History: Cancer Additional Family Medical History / Comment(s): breast CA Medications and Allergies Home Medications Medication Instructions Recorded Confirmed Type ALPRAZolam [Xanax] 0.25 mg PO DAILY PRN 09/11/16 11/12/16 History FLUoxetine HCL [PROzac] 40 mg PO HS 11/02/16 11/12/16 History Cephalexin [Keflex] 500 mg PO Q12HR 11/12/16 11/12/16 History Allergies Allergy/AdvReac Type Severity Reaction Status Date / Time No Known Allergies Allergy Verified 11/12/16 07:48 Physical Exam Vitals: Vital Signs Temp Pulse Pulse Resp BP BP Pulse Ox 11/12/16 12:00 98.1 F 68 18 112/78 94 L 11/12/16 08:00 97.7 F 64 18 116/69 96 11/12/16 04:00 98 F 66 18 129/80 96 11/12/16 03:19 98.1 F 65 18 131/75 96 11/12/16 02:22 83 116/67 95 11/12/16 02:02 98.6 F 65 18 119/71 95 11/12/16 01:44 65 18 126/78 97 11/12/16 01:39 67 18 129/79 99 11/12/16 00:39 97.8 F 18 L 18 129/79 95 Intake and Output 11/11/16 11/12/16 11/12/16 22:59 06:59 14:59 Intake Total 420 Balance 420 Intake: Oral 420 Other: # Voids 1 Weight 106.5 kg PHYSICAL EXAMINATION: GENERAL: The patient is alert and oriented x3, not in any acute distress. Well developed, well nourished. HEENT: Pupils are round and equally reacting to light. EOMI. No scleral icterus. No conjunctival pallor. Normocephalic, atraumatic. No pharyngeal erythema. No thyromegaly. CARDIOVASCULAR: S1 and S2 present. No murmurs, rubs, or gallops. PULMONARY: Chest is clear to auscultation, no wheezing or crackles. ABDOMEN: Soft, nontender, nondistended, normoactive bowel sounds. No palpable organomegaly. MUSCULOSKELETAL: No joint swelling or deformity. EXTREMITIES: No cyanosis, clubbing, or pedal edema. NEUROLOGICAL: Gross neurological examination did not reveal any focal deficits. SKIN: No rashes. Results CBC & Chem 7: 11/12/16 00:50 11/12/16 00:50 Labs: Abnormal Lab Results - Last 24 Hours (Table) 11/12/16 11/12/16 11/12/16 Range/Units 00:50 00:50 00:50 RBC 4.25 L (4.30-5.90) m/uL Hct 38.4 L (39.0-53.0) % Carbon Dioxide 21 L (22-30) mmol/L BUN 28 H (9-20) mg/dL Total Creatine Kinase 42 L (55-170) U/L 11/12/16 11/12/16 Range/Units 06:59 12:48 RBC (4.30-5.90) m/uL Hct (39.0-53.0) % Carbon Dioxide (22-30) mmol/L BUN (9-20) mg/dL Total Creatine Kinase 36 L 41 L (55-170) U/L Assessment and Plan Plan: #1 chest pain, rule out acute coronary syndromes and unstable angina patient underwent stress test that's negative patient will be discharged today. Patient 's chest pain is probably related to his anxiety episode. #2 hypothyroidism #3 obesity: Counseling was provided #4 recent mediastinoscopy for lymph node enlargement, for that follow-up with his primary care physician as an outpatient. For above-mentioned chronic medical problems and wouldn't continue his home medications patient will be discharged today with the stress test is negative
--- NOTE | 2016-11-12 14:27 | P.DS ---
Providers Date of admission: 11/12/16 03:16 Attending physician: Domitila Corea Consults: 11/12/16 03:16 Consult Physician Urgent Consulting Provider: Guido Marcial Consult Reason/Comments: cp Do you want consulting provider notified?: Yes Primary care physician: Raúl Mendoza [facility] Course: Please refer to HPI Plan - Discharge Summary New Discharge Prescriptions: No Action ALPRAZolam [Xanax] 0.25 mg PO DAILY PRN PRN Reason: Anxiety FLUoxetine HCL [PROzac] 40 mg PO HS HYDROcodone/APAP 5-325MG [[place] 5-325] 1 tab PO Q4HR PRN #20 tab PRN Reason: Pain Cephalexin [Keflex] 500 mg PO Q12HR Discharge Medication List ALPRAZolam [Xanax] 0.25 mg PO DAILY PRN 09/11/16 [History] FLUoxetine HCL [PROzac] 40 mg PO HS 11/02/16 [History] HYDROcodone/APAP 5-325MG [[place] 5-325] 1 tab PO Q4HR PRN #20 tab 11/04/16 [Rx] Cephalexin [Keflex] 500 mg PO Q12HR 11/12/16 [History] Follow up Appointment(s)/Referral(s): Raúl Cho MD [Primary Care Provider] - 3 Days Patient Instructions/Handouts: Chest Pain (DC) Discharge Disposition: HOME SELF-CARE
[2016-11-13] MEDS ORDERED: ASPIRIN 325 MG TAB PO SCH (09:00)
== END 2016-11-12 14:57 | disposition home or self-care (01) ==
LOC: EC 00:37 → 3OBS 03:16
PROVIDERS: ADMIT Internal Medicine; ATTEND Internal Medicine
DX: R07.89 Other chest pain (principal); E03.9 Hypothyroidism, unspecified; E66.9 Obesity, unspecified; Z68.33 Body mass index [BMI] 33.0-33.9, adult; R59.0 Localized enlarged lymph nodes; E78.00 Pure hypercholesterolemia, unspecified; Z79.899 Other long term (current) drug therapy; F41.9 Anxiety disorder, unspecified; F32.9 Major depressive disorder, single episode, unspecified; Z87.891 Personal history of nicotine dependence; Z80.3 Family history of malignant neoplasm of breast
CPT/HCPCS: 99285; 36415; 93005; 93017; 93306; 85379; 80053; 82550; 82553; 83735; 84484; 85025; 85610; 85730; 71020; G0378

== ENCOUNTER 2016-11-13 21:06 | Emergency (ER) | payer BC ==
[2016-11-13 21:14] VITALS: BP 133/88; PULSE 67; RESP 18; TEMP 98.1
[2016-11-13] MEDS ORDERED: KETOROLAC 30 MG/ML 1 ML VIAL IVP STA (21:47)
[2016-11-13] MEDS ORDERED: RX INFO: IV CONTRAST WAS GIVEN 1 EACH MISC MISCELLANE PRN (21:47)
--- NOTE | 2016-11-13 22:27 | ED ---
Abdominal Pain HPI - General Chief Complaint: Abdominal Pain Stated Complaint: Abd Pain Time Seen by Provider: 11/13/16 21:26 Source: patient Mode of arrival: ambulatory Limitations: no limitations - History of Present Illness Initial Comments: This 36-year-old white male presents with a complaint of some bilateral lower abdominal as well as bilateral testicular pain which started approximately one day ago. He states that he fell sleep last night and this morning it was better but then it reoccurred. He denies any previous similar incidents. He denies any fevers, chills, nausea, vomiting, diarrhea, constipation. He denies any urinary frequency, urgency, or dysuria. He denies any actual injuries. He states that the pain is fairly severe earlier. He tried a [place] and this seemed to help. He was just discharged from the hospital one day ago after having a negative workup for chest pain. He also had a thoracic biopsy approximate one week ago and was told today that it came back positive for sarcoidosis. He denies any other complaints or modifying factors. He has been able to eat today without any problems. He relates that he was just prescribed some prednisone and another anti-sarcoidosis medication today but has not started taking them as of yet. He also states that he only has 1-2 of his [place] left. - Related Data Home Medications Medication Instructions Recorded Confirmed ALPRAZolam [Xanax] 0.25 mg PO DAILY PRN 09/11/16 11/12/16 FLUoxetine HCL [PROzac] 40 mg PO HS 11/02/16 11/12/16 Cephalexin [Keflex] 500 mg PO Q12HR 11/12/16 11/12/16 Previous Rx's Medication Instructions Recorded HYDROcodone/APAP 5-325MG [[place] 1 tab PO Q4HR PRN #20 tab 11/04/16 5-325] Hydrocodone/Acetaminophen [[place] 1 - 2 each PO Q4HR PRN #20 tab 11/13/16 5-325] Allergies Allergy/AdvReac Type Severity Reaction Status Date / Time No Known Allergies Allergy Verified 11/12/16 07:48 Review of Systems ROS Statement: Those systems with pertinent positive or pertinent negative responses have been documented in the HPI. ROS Other: All systems not noted in ROS Statement are negative. Past Medical History Past Medical History: Thyroid Disorder Additional Past Medical History / Comment(s): sarcoidosis History of Any Multi-Drug Resistant Organisms: None Reported Additional Past Surgical History / Comment(s): neck biopsy 10/2016 Past Anesthesia/Blood Transfusion Reactions: No Reported Reaction Past Psychological History: Anxiety, Depression Smoking Status: Former smoker Past Alcohol Use History: None Reported Past Drug Use History: None Reported - Past Family History Mother Family Medical History: Cancer Father Additional Family Medical History / Comment(s): arthritis General Exam - General Exam Comments Initial Comments: GENERAL: The patient is well nourished and well hydrated. VITAL SIGNS: Heart rate, blood pressure, respiratory rate reviewed as recorded in nurse's notes. EYES: Pupils are round and reactive. Extraocular movements are intact. No conjunctival / lid redness or swelling. ENT: No external evidence of injury, swelling, or ecchymosis. Airway is patent. Throat is clear. NECK: Nontender. No swelling or evidence of injury. No subcutaneous emphysema. Trachea is midline. No thyroid mass. HEART: Regular rate and rhythm. Good peripheral pulses. LUNGS/CHEST: Breath sounds clear and equal bilaterally. No rales, rhonchi, or wheezes. No ecchymosis, subcutaneous emphysema, or tenderness. ABDOMEN: Abdomen soft without tenderness. No palpable masses or organomegaly. No peritoneal signs. No abdominal wall swelling or ecchymosis. EXTREMITIES: No extremity tenderness. Normal muscle tone and function. No thoracolumbar tenderness. NEUROLOGIC: Sensation is grossly intact. Cranial nerve exam reveals face is symmetrical, tongue is midline, speech is clear. SKIN: No abrasions or ecchymosis is noted. No induration or masses noted. PSYCHIATRIC: Alert and oriented. Appropriate behavior and judgment. Genitourinary: There is no testicular masses noted. There is no identifiable tenderness upon palpation. There is no evidence of hernia. There is no lymphadenopathy. No penile lesions noted. Limitations: no limitations Course Vital Signs 11/13/16 21:11 Temperature 98.1 F Pulse Rate 67 Respiratory 18 Rate Blood Pressure 133/88 O2 Sat by Pulse 95 Oximetry Medical Decision Making - Medical Decision Making The patient was seen and examined. All diagnostics were reviewed. The laboratory, urinalysis, and scrotal ultrasound were all essentially within normal limits. The computed tomography scan of the abdomen and pelvis does show some lymphadenopathy which potentially could be related to the sarcoidosis. This potentially could be causing some of his symptoms as well. He was started on steroids by his doctor today but has not taken them as of yet. Is given a dose of Solu-Medrol in the ER. It is felt as though he is stable for discharge and close follow-up. Return parameters are discussed. His [place] will be refilled. - Lab Data Result diagrams: 11/13/16 22:18 11/13/16 22:18 Lab Results 11/13/16 11/13/16 11/13/16 Range/Units 22:18 22:18 22:18 WBC 6.3 (3.8-10.6) k/uL RBC 4.35 (4.30-5.90) m/uL Hgb 13.9 (13.0-17.5) gm/dL Hct 39.8 (39.0-53.0) % MCV 91.6 (80.0-100.0) fL MCH 32.0 (25.0-35.0) pg MCHC 35.0 (31.0-37.0) g/dL RDW 13.4 (11.5-15.5) % Plt Count 290 (150-450) k/uL Neutrophils % 73 % Lymphocytes % 15 % Monocytes % 7 % Eosinophils % 3 % Basophils % 1 % Neutrophils # 4.6 (1.3-7.7) k/uL Lymphocytes # 1.0 (1.0-4.8) k/uL Monocytes # 0.4 (0-1.0) k/uL Eosinophils # 0.2 (0-0.7) k/uL Basophils # 0.1 (0-0.2) k/uL Sodium 140 (137-145) mmol/L Potassium 4.5 (3.5-5.1) mmol/L Chloride 107 (98-107) mmol/L Carbon Dioxide 21 L (22-30) mmol/L Anion Gap 12 mmol/L BUN 20 (9-20) mg/dL Creatinine 0.90 (0.66-1.25) mg/dL Est GFR (MDRD) Af Amer >60 (>60 ml/min/1.73 sqM) Est GFR (MDRD) Non-Af >60 (>60 ml/min/1.73 sqM) Glucose 92 (74-99) mg/dL Calcium 9.7 (8.4-10.2) mg/dL Total Bilirubin 0.8 (0.2-1.3) mg/dL AST 26 (17-59) U/L ALT 49 (21-72) U/L Alkaline Phosphatase 73 (38-126) U/L Total Protein 7.2 (6.3-8.2) g/dL Albumin 4.7 (3.5-5.0) g/dL Urine Color Yellow Urine Appearance Clear (Clear) Urine pH 6.0 (5.0-8.0) Ur Specific [place] 1.031 (1.001-1.035) Urine Protein Trace H (Negative) Urine Glucose (UA) Negative (Negative) Urine Ketones Trace H (Negative) Urine Blood Negative (Negative) Urine Nitrite Negative (Negative) Urine Bilirubin Negative (Negative) Urine Urobilinogen 2.0 (<2.0) mg/dL Ur Leukocyte Esterase Negative (Negative) Disposition Clinical Impression: Abdominal pain, Testicular pain, Sarcoidosis, Lymphadenopathy Disposition: HOME SELF-CARE Condition: Good Instructions: Abdominal Pain (ED), Sarcoidosis (ED), Lymphadenopathy (ED) Prescriptions: Hydrocodone/Acetaminophen [[place] 5-325] 1 - 2 each PO Q4HR PRN #20 tab PRN Reason: Pain Referrals: Raúl Cho MD [Primary Care Provider] - 1-2 days Time of Disposition: 23:58
[2016-11-13 22:37] LABS: Appearance,Urine Clear (Clear); Bilirubin,Urine Negative (Negative); Glucose,Urine (UA) Negative (Negative); Ketones,Urine Trace (Negative); Leukocyte Esterase,Urine Negative (Negative); Nitrite,Urine Negative (Negative); Protein,Urine Trace (Negative); Specific Gravity,Urine 1.031 (1.001-1.035); UA Billing (MACRO vs. MICRO) CHEM
[2016-11-13 22:38] LABS: Basophils # (A) 0.1 k/uL (0-0.2); Basophils % (A) 1 %; CH 32.3; CHCM 35.4; Eosinophils # (A) 0.2 k/uL (0-0.7); Eosinophils % (A) 3 %; HCT 39.8 % (39.0-53.0); HDW 2.72; HGB 13.9 gm/dL (13.0-17.5); Luc # (Auto) 0.11; Luc % (Auto) 2; Lymphocytes % (A) 15 %; MCV 91.6 fL (80.0-100.0); Mean Platelet Volume 7.3; Monocytes # (A) 0.4 k/uL (0-1.0); Monocytes % (A) 7 %; Neutrophils # (A) 4.6 k/uL (1.3-7.7); Neutrophils % (A) 73 %; RBC 4.35 m/uL (4.30-5.90); RDW 13.4 % (11.5-15.5); WBC 6.3 k/uL (3.8-10.6); WBC (Perox) 6.31
[2016-11-13 22:50] LABS: ALT 49 U/L (21-72); AST 26 U/L (17-59); Alkaline Phosphatase 73 U/L (38-126); Anion Gap 12 mmol/L; Blood Urea Nitrogen 20 mg/dL (9-20); Calcium 9.7 mg/dL (8.4-10.2); Carbon Dioxide 21 mmol/L (22-30); Chloride 107 mmol/L (98-107); Glucose 92 mg/dL (74-99); Non-African American GFR(MDRD) >60 (>60 ml/min/1.73 sqM); Potassium 4.5 mmol/L (3.5-5.1); Sodium 140 mmol/L (137-145); Total Bilirubin 0.8 mg/dL (0.2-1.3); Total Protein 7.2 g/dL (6.3-8.2)
--- NOTE | 2016-11-13 23:09 | CT ---
EXAM: CT Abdomen and Pelvis With Intravenous Contrast CLINICAL HISTORY: Reason: abdominal pain TECHNIQUE: Axial computed tomography images of the abdomen and pelvis with intravenous contrast. CTDI is 15 mGy and DLP is 860 mGy-cm. Axial delayed images were also obtained and reviewed. CTDI is 16.9 mGy and DLP is 522 mGy-cm. This CT exam was performed using one or more of the following dose reduction techniques: automated exposure control, adjustment of the mA and/or kV according to patient size, and/or use of iterative reconstruction technique. COMPARISON: No relevant prior studies available. FINDINGS: Lower thorax: No acute findings. ABDOMEN: Liver: Unremarkable. No mass. Gallbladder and bile ducts: Unremarkable. No calcified stones. No ductal dilation. Pancreas: Unremarkable. No mass. No ductal dilation. Spleen: Unremarkable. No splenomegaly. Adrenals: Unremarkable. No mass. Kidneys and ureters: Unremarkable. No solid mass. No hydronephrosis. Stomach and bowel: Unremarkable. No obstruction. No mucosal thickening. Appendix: No findings to suggest acute appendicitis. PELVIS: Bladder: Unremarkable. No mass. Reproductive: Unremarkable as visualized. ABDOMEN and PELVIS: Intraperitoneal space: Unremarkable. No free air. No significant fluid collection. Bones/joints: Degenerative disc space narrowing at L5/S1. Disc bulges seen at L3/L4 and L4/L5. No acute fracture. No dislocation. Soft tissues: Unremarkable. Vasculature: Unremarkable. No abdominal aortic aneurysm. Lymph nodes: Mildly prominent retroperitoneal lymph nodes with an aortocaval lymph node measuring up to 2.3-cm. IMPRESSION: Mildly prominent retroperitoneal lymph nodes with an aortocaval lymph node measuring up to 2.3-cm. Findings are nonspecific. No definite acute intraabdominal abnormality.
--- NOTE | 2016-11-13 23:19 | US ---
EXAM: US Scrotum CLINICAL HISTORY: Reason: Pain TECHNIQUE: Real-time ultrasound of the scrotum with color Doppler and image documentation. COMPARISON: No relevant prior studies available. FINDINGS: Right testicle: 4.1 x 2.3 x 2.6 cm. No mass. No torsion. Left testicle: 4.2 x 2.1 x 2.8 cm. No mass. No torsion. Epididymides: Right Epididymis: 1.3 x 0.7 cm Left Epididymis: 1.0 x 0.8 cm Scrotum: Unremarkable. IMPRESSION: No acute findings.
[2016-11-13] MEDS ORDERED: methylPREDNISolone SOD SUCCI 125 MG/2 ML VIAL IV STA (23:55)
== END 2016-11-14 00:27 | disposition home or self-care (01) ==
LOC: EC 21:06
DX: D86.9 Sarcoidosis, unspecified (principal); N50.811 Right testicular pain; N50.812 Left testicular pain; F32.9 Major depressive disorder, single episode, unspecified; F41.9 Anxiety disorder, unspecified; Z87.891 Personal history of nicotine dependence; Z79.899 Other long term (current) drug therapy
CPT/HCPCS: 36415; 80053; 85025; 81003; 93975; 76870; 74177; 99284; 96374; 96375; J2930; J1885; Q9967

== ENCOUNTER 2016-12-09 06:45 | Emergency (ER) | payer BC ==
[2016-12-09 06:50] VITALS: BP 133/88; PULSE 80; RESP 18; TEMP 98
[2016-12-09] MEDS ORDERED: KETOROLAC 60 MG/2 ML VIAL IM STA (07:18)
--- NOTE | 2016-12-09 08:15 | ED ---
General Adult HPI - General Chief complaint: Back Pain/Injury Stated complaint: back pain,leg numbness Time Seen by Provider: 12/09/16 07:00 Source: patient, RN notes reviewed Mode of arrival: ambulatory Limitations: no limitations - History of Present Illness Initial comments: This is a 36-year-old male presents emergency Department complaining of back pain in his left lower back. Patient states it started this morning when he went to get out of bed. Patient states she was a little bit of radiation down the posterior aspect of his left leg. Patient states yesterday he was dragging a bunch of Gonzalez on the floor and he thinks he may have injured it then. Patient states she's been told in the past he has degenerative disc disease as well as some bulging disks. Patient states she's never had the symptoms that he had this morning of pain down the leg. Patient denies any recent injury or trauma. Patient denies any cancer history. Patient states it is gotten better since he woke up but he wanted to be evaluated so came to the emergency department. Patient denies any numbness or weakness per patient denies any perineum sensation change. Patient denies any incontinence of urine or urinary retention. - Related Data Home Medications Medication Instructions Recorded Confirmed ALPRAZolam [Xanax] 0.25 mg PO DAILY PRN 09/11/16 12/09/16 FLUoxetine HCL [PROzac] 40 mg PO HS 11/02/16 12/09/16 Hydroxychloroquine Sulfate 200 mg PO BID 12/09/16 12/09/16 [Plaquenil] Simvastatin [Zocor] 40 mg PO HS 12/09/16 12/09/16 predniSONE 20 mg PO DAILY 12/09/16 12/09/16 Previous Rx's Medication Instructions Recorded Ibuprofen [Motrin] 600 mg PO Q6HR PRN #20 tab 12/09/16 Allergies Allergy/AdvReac Type Severity Reaction Status Date / Time No Known Allergies Allergy Verified 12/09/16 06:50 Review of Systems ROS Statement: Those systems with pertinent positive or pertinent negative responses have been documented in the HPI. ROS Other: All systems not noted in ROS Statement are negative. Past Medical History Past Medical History: Thyroid Disorder Additional Past Medical History / Comment(s): sarcoidosis History of Any Multi-Drug Resistant Organisms: None Reported Additional Past Surgical History / Comment(s): neck biopsy 10/2016 Past Anesthesia/Blood Transfusion Reactions: No Reported Reaction Past Psychological History: Anxiety, Depression Smoking Status: Former smoker Past Alcohol Use History: None Reported Past Drug Use History: None Reported - Past Family History Mother Family Medical History: Cancer Father Additional Family Medical History / Comment(s): arthritis General Exam - General Exam Comments Initial Comments: GENERAL: Patient is well-developed and well-nourished. Patient is nontoxic and well- hydrated and is in mild distress. ENT: Neck is soft and supple. No significant lymphadenopathy is noted. Oropharynx is clear. Moist mucous membranes. Neck has full range of motion without eliciting any pain. EYES: The sclera were anicteric and conjunctiva were pink and moist. Extraocular movements were intact and pupils were equal round and reactive to light. Eyelids were unremarkable. SKIN: Skin is clear with no lesions or rashes and otherwise unremarkable. NEUROLOGIC: Patient is alert and oriented x3. Cranial nerves II through XII are grossly intact. Motor and sensory are also intact. Normal speech, volume and content. Symmetrical smile. Patient's straight leg test was positive on the left leg at about 30 MUSCULOSKELETAL: Normal extremities with adequate strength and full range of motion. No lower extremity swelling or edema. No calf tenderness. PSYCHIATRIC: Normal psychiatric exam Limitations: no limitations Course Vital Signs 12/09/16 06:47 Temperature 98.0 F Pulse Rate 80 Respiratory 18 Rate Blood Pressure 133/88 O2 Sat by Pulse 97 Oximetry Disposition Clinical Impression: Sciatica Disposition: HOME SELF-CARE Instructions: Sciatica (ED) Prescriptions: Ibuprofen [Motrin] 600 mg PO Q6HR PRN #20 tab PRN Reason: For pain Referrals: Raúl Cho MD [Primary Care Provider] - 1-2 days
== END 2016-12-09 07:43 | disposition home or self-care (01) ==
LOC: EC 06:45
DX: M54.42 Lumbago with sciatica, left side (principal); D86.9 Sarcoidosis, unspecified; E07.9 Disorder of thyroid, unspecified; F32.9 Major depressive disorder, single episode, unspecified; F41.9 Anxiety disorder, unspecified; Z87.891 Personal history of nicotine dependence; Z79.52 Long term (current) use of systemic steroids; Z79.899 Other long term (current) drug therapy; Z82.69 Family history of other diseases of the musculoskeletal system and connective tissue
CPT/HCPCS: 99283; 96372; J1885

== ENCOUNTER 2017-06-02 06:10 | Emergency (ER) | payer BC ==
[2017-06-02] MEDS ORDERED: NITROGLYCERIN SL TABS 0.4 MG TAB SUBLINGUAL STA (07:13)
[2017-06-02] MEDS ORDERED: MORPHINE SULFATE 4 MG/ML SYRINGE IVP STA (07:13)
[2017-06-02] MEDS ORDERED: ASPIRIN 81 MG PO STA (07:13)
[2017-06-02] MEDS ORDERED: SODIUM CHLORIDE 0.9% 1,000 ML IV STA (07:13)
[2017-06-02] MEDS ORDERED: ONDANSETRON 4 MG/2 ML VIAL IVP STA (07:13)
--- NOTE | 2017-06-02 07:23 | ED ---
Chest Pain HPI - General Chief Complaint: Chest Pain Stated Complaint: chest pain Time Seen by Provider: 06/02/17 07:12 Source: patient Mode of arrival: ambulatory Limitations: no limitations - History of Present Illness Initial Comments: 37 years old male resented with the chest pain chest pain started 2100 last night chest pain been there all night off and on and he does get worse with deep breaths he has been coughing and does cough up some phlegm chest pain gets worse with deep breaths, he denies any history of pulmonary embolism or deep venous thrombosis he does have a history of sarcoidosis on some steroids at this time it is in his dose of prednisone was decreased from 40 mg. As Been Spitting up Some Phlegm Didn't Get a Flu Shot to [employer] at his work, he had a fluid - Related Data Home Medications Medication Instructions Recorded Confirmed ALPRAZolam [Xanax] 0.25 mg PO DAILY PRN 09/11/16 06/02/17 FLUoxetine HCL [PROzac] 40 mg PO HS 11/02/16 06/02/17 Hydroxychloroquine Sulfate 200 mg PO BID 12/09/16 06/02/17 [Plaquenil] Simvastatin [Zocor] 40 mg PO HS 12/09/16 06/02/17 predniSONE 20 mg PO DAILY 12/09/16 06/02/17 Allergies Allergy/AdvReac Type Severity Reaction Status Date / Time No Known Allergies Allergy Verified 06/02/17 07:14 Review of Systems ROS Statement: Those systems with pertinent positive or pertinent negative responses have been documented in the HPI. ROS Other: All systems not noted in ROS Statement are negative. EKG Findings - EKG Comments: EKG Findings:: EKG is normal sinus rhythm ventricular rate is 62 MD interval is 136 QRS duration is 86 QT/QTc is 42/411 50 mL EKG does not reveal any ST elevation or ST depression Past Medical History Past Medical History: Thyroid Disorder Additional Past Medical History / Comment(s): sarcoidosis History of Any Multi-Drug Resistant Organisms: None Reported Additional Past Surgical History / Comment(s): neck biopsy 10/2016, Past Anesthesia/Blood Transfusion Reactions: No Reported Reaction Past Psychological History: Anxiety, Depression Smoking Status: Former smoker Past Alcohol Use History: Occasional Past Drug Use History: None Reported - Past Family History Mother Family Medical History: Cancer Father Additional Family Medical History / Comment(s): arthritis General Exam - General Exam Comments Initial Comments: General: The patient is awake and alert, in no distress, and does not appear acutely ill. Skin: Skin is warm and dry and no rashes or lesions are noted. Eye: Pupils are equal, round and reactive to light, extra-ocular movements are intact; there is normal conjunctiva bilaterally. Ears, nose, mouth and throat: There are moist mucous membranes and no oral lesions. Neck: The neck is supple, there is no tenderness or JVD. Cardiovascular: There is a regular rate and rhythm. No murmur, rub or gallop is appreciated. Respiratory: To auscultation bilateral, no wheezing no rhonchi no distress respiratory ty noticed Gastrointestinal: Soft, non-distended, non-tender abdomen without masses or organomegaly noted. There is no rebound or guarding present. Bowel sounds are unremarkable. Back: There is no tenderness to palpation in the midline. There is no obvious deformity. Musculoskeletal: Normal ROM, no tenderness, There is no pedal edema. There is no calf tenderness or swelling. No cords were appreciated. Neurological: CN II-XII intact, Cranial nerves III through XII are intact. There are no obvious motor or sensory deficits. Coordination appears grossly intact. Speech is normal. Psychiatric: Cooperative, appropriate mood & affect, normal judgment. Limitations: no limitations Course Vital Signs 06/02/17 06/02/17 06/02/17 06:13 07:35 07:42 Temperature 99.2 F Pulse Rate 76 63 75 Respiratory 18 18 16 Rate Blood Pressure 135/78 149/63 129/62 O2 Sat by Pulse 95 97 97 Oximetry 06/02/17 08:34 Temperature Pulse Rate 69 Respiratory 16 Rate Blood Pressure 127/87 O2 Sat by Pulse 97 Oximetry Patient was reassessed at term 1815, troponin, EKG, d-dimer, CBC, chest x-ray and flu studies are unremarkable he does have a history of sarcoidosis and chest x-ray reported out some lymphadenopathy we had discussed this in great length according to the patient he had a stress test and echo done within the 6 months 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
[2017-06-02 07:56] LABS: Basophils % (A) 1 %; Eosinophils # (A) 0.2 k/uL (0-0.7); Eosinophils % (A) 3 %; HCT 44.9 % (39.0-53.0); HGB 14.5 gm/dL (13.0-17.5); Lymphocytes # (A) 0.6 k/uL (1.0-4.8); Lymphocytes % (A) 14 %; MCH 31.4 pg (25.0-35.0); MCHC 32.3 g/dL (31.0-37.0); MCV 97.4 fL (80.0-100.0); Mean Platelet Volume 7.5; Monocytes # (A) 0.4 k/uL (0-1.0); Monocytes % (A) 9 %; Neutrophils # (A) 3.3 k/uL (1.3-7.7); Neutrophils % (A) 72 %; Platelet Count 266 k/uL (150-450); RBC 4.61 m/uL (4.30-5.90); RDW 12.8 % (11.5-15.5); WBC 4.6 k/uL (3.8-10.6)
[2017-06-02 08:09] LABS: D-Dimer <0.17 mg/L FEU (<0.60); Partial Thromboplastin Time 24.3 sec (22.0-30.0); Prothrombin Time 10.1 sec (9.0-12.0)
[2017-06-02 08:11] LABS: ALT 44 U/L (21-72); AST 26 U/L (17-59); Albumin 4.6 g/dL (3.5-5.0); Alkaline Phosphatase 76 U/L (38-126); Anion Gap 14 mmol/L; Blood Urea Nitrogen 15 mg/dL (9-20); Calcium 9.8 mg/dL (8.4-10.2); Carbon Dioxide 23 mmol/L (22-30); Chloride 104 mmol/L (98-107); Glucose 95 mg/dL (74-99); Magnesium 1.8 mg/dL (1.6-2.3); Sodium 141 mmol/L (137-145); Total Bilirubin 0.9 mg/dL (0.2-1.3); Total Protein 7.1 g/dL (6.3-8.2)
[2017-06-02 08:16] LABS: Potassium 4.4 mmol/L (3.5-5.1)
--- NOTE | 2017-06-02 08:17 | XR ---
EXAMINATION TYPE: XR chest 2V DATE OF EXAM: 06/02/2017 COMPARISON: 11/12/[address] 10/01/2016. HISTORY: 37-year-old male with chest pain TECHNIQUE: PA and lateral views FINDINGS: Heart normal size. Aorta and pulmonary vasculature are within normal limits. There is slight bilatera l hilar prominence similar to prior. The technologist reports a history of pulmonary sarcoidosis in t his patient and underlying hilar lymphadenopathy is suggested when correlating with patient's 10/02/[address] No consolidation or pleural effusion. IMPRESSION: Stable hilar lymphadenopathy probably reflecting patient's reported sarcoidosis. No acute cardiopulmo nary process.
[2017-06-02 08:23] LABS: Creatine Kinase 43 U/L (55-170)
[2017-06-02 08:36] LABS: Troponin I <0.012 ng/mL (0.000-0.034)
[2017-06-02 09:28] VITALS: BP 129/69; PULSE 64; RESP 18; TEMP 98.5
== END 2017-06-02 09:28 | disposition home or self-care (01) ==
LOC: EC 06:10
DX: R07.9 Chest pain, unspecified (principal); R05 Cough; D86.9 Sarcoidosis, unspecified; E07.9 Disorder of thyroid, unspecified; F41.9 Anxiety disorder, unspecified; F32.9 Major depressive disorder, single episode, unspecified; Z87.891 Personal history of nicotine dependence; Z79.52 Long term (current) use of systemic steroids; Z79.899 Other long term (current) drug therapy
CPT/HCPCS: 36415; 85379; 80053; 82550; 82553; 83735; 84484; 85025; 85610; 85730; 87502; 71046; 99285; 96374; 96375; 96361 ×2; J2270; J2405; 93005

== ENCOUNTER 2017-06-14 10:53 | Emergency (ER) | payer BC ==
[2017-06-14 10:59] VITALS: TEMP 97.1
[2017-06-14] MEDS ORDERED: ASPIRIN 81 MG PO STA (11:03)
[2017-06-14 11:32] LABS: Basophils % (A) 1 %; Eosinophils # (A) 0.1 k/uL (0-0.7); Eosinophils % (A) 2 %; HCT 42.3 % (39.0-53.0); HGB 14.3 gm/dL (13.0-17.5); Lymphocytes # (A) 0.7 k/uL (1.0-4.8); Lymphocytes % (A) 11 %; MCH 31.5 pg (25.0-35.0); MCHC 33.9 g/dL (31.0-37.0); Mean Platelet Volume 7.2; Monocytes # (A) 0.4 k/uL (0-1.0); Monocytes % (A) 6 %; Neutrophils # (A) 4.7 k/uL (1.3-7.7); Neutrophils % (A) 79 %; Platelet Count 253 k/uL (150-450); RBC 4.55 m/uL (4.30-5.90); RDW 12.4 % (11.5-15.5); WBC 5.9 k/uL (3.8-10.6)
[2017-06-14 11:46] LABS: ALT 42 U/L (21-72); AST 26 U/L (17-59); Albumin 4.7 g/dL (3.5-5.0); Alkaline Phosphatase 62 U/L (38-126); Anion Gap 12 mmol/L; Blood Urea Nitrogen 20 mg/dL (9-20); Calcium 9.8 mg/dL (8.4-10.2); Carbon Dioxide 24 mmol/L (22-30); Chloride 104 mmol/L (98-107); Glucose 118 mg/dL (74-99); Magnesium 2.1 mg/dL (1.6-2.3); Potassium 4.1 mmol/L (3.5-5.1); Sodium 140 mmol/L (137-145); Total Bilirubin 1.2 mg/dL (0.2-1.3); Total Protein 7.2 g/dL (6.3-8.2)
[2017-06-14 11:50] LABS: Creatine Kinase 64 U/L (55-170)
--- NOTE | 2017-06-14 11:51 | XR ---
EXAMINATION TYPE: XR chest 2V DATE OF EXAM: 06/14/2017 COMPARISON: 06/02/2017 HISTORY: Sharp chest pain. History of pulmonary sarcoidosis. TECHNIQUE: Frontal and lateral views of the chest are obtained. FINDINGS: There is no focal air space opacity, pleural effusion, or pneumothorax seen. The cardiac silhouette size is within normal limits. The osseous structures are intact. Again there is slight h ilar prominence compatible the patient's known history of sarcoidosis and hilar adenopathy. IMPRESSION: Unchanged hilar prominence relating to known adenopathy in this patient with a history o f sarcoidosis. No acute cardiopulmonary process.
[2017-06-14 12:03] LABS: Troponin I <0.012 ng/mL (0.000-0.034)
[2017-06-14 12:09] LABS: INR 1.1 (<1.2); Partial Thromboplastin Time 24.8 sec (22.0-30.0); Prothrombin Time 10.9 sec (9.0-12.0)
--- NOTE | 2017-06-14 12:33 | ED ---
Chest Pain HPI - General Chief Complaint: Chest Pain Stated Complaint: CHEST PAIN Time Seen by Provider: 06/14/17 11:03 Source: patient, RN notes reviewed Mode of arrival: wheelchair Limitations: no limitations - History of Present Illness Initial Comments: This a 37-year-old male presents emergency Department chief complaint right- sided chest pain. Patient states started last 24 hours. Patient states that sometimes assassin does not he does state it sharp shooting type pain. He did admit that he is here 2 weeks ago with pain now similar nature though it is exacerbated by inspiration. Patient states it diagnosed with [facility] at that time. Patient states that he has stress tests approximate 6-7 months ago which was normal he also had an echo at that time. Patient does have some underlying lung disease in which she has sarcoidosis. Patient sees Dr. de souza. Patient denies fever, chills, headache, dizziness. He does take medicine for hyperlipidemia he denies history of diabetes, hypertension, family heart disease. - Related Data Home Medications Medication Instructions Recorded Confirmed ALPRAZolam [Xanax] 0.25 mg PO DAILY PRN 09/11/16 06/14/17 FLUoxetine HCL [PROzac] 40 mg PO HS 11/02/16 06/14/17 Hydroxychloroquine Sulfate 200 mg PO BID 12/09/16 06/14/17 [Plaquenil] Simvastatin [Zocor] 40 mg PO HS 12/09/16 06/14/17 predniSONE 10 mg PO DAILY 06/14/17 06/14/17 Allergies Allergy/AdvReac Type Severity Reaction Status Date / Time No Known Allergies Allergy Verified 06/14/17 11:19 Review of Systems ROS Statement: Those systems with pertinent positive or pertinent negative responses have been documented in the HPI. ROS Other: All systems not noted in ROS Statement are negative. EKG Findings - EKG Comments: EKG Findings:: EKG performed at 11:03 normal sinus rhythm with a rate of 79. pr interval 138 QRS 92 QT/QTc 390/447 Past Medical History Past Medical History: Thyroid Disorder Additional Past Medical History / Comment(s): sarcoidosis History of Any Multi-Drug Resistant Organisms: None Reported Additional Past Surgical History / Comment(s): neck biopsy 10/2016, Past Anesthesia/Blood Transfusion Reactions: No Reported Reaction Past Psychological History: Anxiety, Depression Smoking Status: Former smoker Past Alcohol Use History: Occasional Past Drug Use History: None Reported - Past Family History Mother Family Medical History: Cancer Father Additional Family Medical History / Comment(s): arthritis General Exam Limitations: no limitations General appearance: alert, in no apparent distress Head exam: Present: atraumatic, normocephalic, normal inspection Eye exam: Present: normal appearance, PERRL, EOMI. Absent: scleral icterus, conjunctival injection, periorbital swelling ENT exam: Present: normal exam, normal oropharynx, mucous membranes moist Neck exam: Present: normal inspection, full ROM. Absent: tenderness, meningismus, lymphadenopathy Respiratory exam: Present: normal lung sounds bilaterally. Absent: respiratory distress, wheezes, rales, rhonchi, stridor, chest wall tenderness Cardiovascular Exam: Present: regular rate, normal rhythm, normal heart sounds. Absent: systolic murmur, diastolic murmur, rubs, gallop, clicks Neurological exam: Present: alert, oriented X3, CN II-XII intact Skin exam: Present: warm, dry, intact, normal color. Absent: rash Course Vital Signs 06/14/17 06/14/17 10:56 12:44 Temperature 97.1 F L Pulse Rate 87 71 Respiratory 17 18 Rate Blood Pressure 134/79 139/74 O2 Sat by Pulse 97 96 Oximetry Chest Pain MDM - MDM 37-year-old male presented for right-sided chest pain. Patient's lab work was reviewed there is no acute abnormality's. Patient had slight changes in EKG from prior. Case was discussed with patient registration representative EKG is were faxed patient registration representative they did review said there is no concern at this time. Patient had echocardiogram 7 months ago. Patient be discharged and follow-up with his primary care physician/forensic investigator. Return parameters were discussed. Disposition Clinical Impression: Atypical chest pain Disposition: HOME SELF-CARE Condition: Stable Instructions: Chest Pain (ED) Additional Instructions: Please return to the Emergency Department if symptoms worsen or any other concerns. Referrals: Alberto Sarmiento MD [Primary Care Provider] - 1-2 days Time of Disposition: 13:13
[2017-06-14 13:27] VITALS: BP 141/67; PULSE 70; RESP 16
== END 2017-06-14 13:27 | disposition home or self-care (01) ==
LOC: EC 10:53
DX: R07.89 Other chest pain (principal); E78.5 Hyperlipidemia, unspecified; D86.0 Sarcoidosis of lung; F32.9 Major depressive disorder, single episode, unspecified; F41.9 Anxiety disorder, unspecified; Z87.891 Personal history of nicotine dependence; Z79.52 Long term (current) use of systemic steroids; Z79.899 Other long term (current) drug therapy
CPT/HCPCS: 36415; 71046; 80053; 82550; 82553; 83735; 84484; 85025; 85610; 85730; 93005; 99285

== ENCOUNTER 2017-07-28 09:44 | Emergency (ER) | payer BC ==
[2017-07-28 09:49] VITALS: TEMP 99
[2017-07-28] MEDS ORDERED: SODIUM CHLORIDE 0.9% 1,000 ML IV STA ×3 (10:25→12:32)
[2017-07-28 10:57] LABS: Appearance,Urine Clear (Clear); Bilirubin,Urine Negative (Negative); Blood,Urine Negative (Negative); Color,Urine Yellow; Glucose,Urine (UA) Negative (Negative); Ketones,Urine Negative (Negative); Leukocyte Esterase,Urine Negative (Negative); Nitrite,Urine Negative (Negative); Protein,Urine Negative (Negative); Specific Gravity,Urine 1.018 (1.001-1.035); Urobilinogen,Urine <2.0 mg/dL (<2.0)
[2017-07-28 10:59] LABS: Basophils % (A) 0 %; Eosinophils # (A) 0.1 k/uL (0-0.7); Eosinophils % (A) 2 %; HCT 41.3 % (39.0-53.0); HGB 14.4 gm/dL (13.0-17.5); Lymphocytes # (A) 0.6 k/uL (1.0-4.8); Lymphocytes % (A) 7 %; MCH 31.6 pg (25.0-35.0); MCV 90.2 fL (80.0-100.0); Mean Platelet Volume 7.1; Monocytes # (A) 0.5 k/uL (0-1.0); Monocytes % (A) 5 %; Neutrophils # (A) 7.4 k/uL (1.3-7.7); Neutrophils % (A) 85 %; Platelet Count 264 k/uL (150-450); RBC 4.57 m/uL (4.30-5.90); RDW 12.3 % (11.5-15.5); WBC 8.7 k/uL (3.8-10.6)
[2017-07-28 11:05] LABS: ALT 39 U/L (21-72); AST 25 U/L (17-59); Albumin 4.7 g/dL (3.5-5.0); Alkaline Phosphatase 55 U/L (38-126); Anion Gap 15 mmol/L; Blood Urea Nitrogen 19 mg/dL (9-20); Calcium 9.9 mg/dL (8.4-10.2); Carbon Dioxide 23 mmol/L (22-30); Chloride 105 mmol/L (98-107); Glucose 95 mg/dL (74-99); Potassium 4.4 mmol/L (3.5-5.1); Sodium 143 mmol/L (137-145); Total Bilirubin 1.4 mg/dL (0.2-1.3); Total Protein 7.2 g/dL (6.3-8.2)
--- NOTE | 2017-07-28 11:16 | XR ---
EXAMINATION TYPE: XR chest 2V DATE OF EXAM: 07/28/2017 COMPARISON: Chest x-ray June 14, 2017. HISTORY: Dizziness and weakness. TECHNIQUE: Frontal and lateral views of the chest are obtained. FINDINGS: There is no focal air space opacity, pleural effusion, or pneumothorax seen. The cardiac silhouette size is within normal limits. The osseous structures are intact. IMPRESSION: No acute cardiopulmonary process. No significant change from prior.
[2017-07-28 11:29] LABS: INR 1.1 (<1.2); Prothrombin Time 10.6 sec (9.0-12.0)
--- NOTE | 2017-07-28 11:49 | ED ---
Dizziness HPI - General Chief Complaint: Dizziness Stated Complaint: elevated BP Time Seen by Provider: 07/28/17 09:55 Source: patient, RN notes reviewed, old records reviewed Mode of arrival: ambulatory Limitations: no limitations - History of Present Illness Initial Comments: 37-year-old male presents for CC of dizziness. He reports that a few days ago he had episodes of diarrhea. She reports that he was at work today and he started to have some episodes of dizziness he sat down and took his blood pressure was elevated at that time. He reports around is 180/100. He denies any chest pain or shortness of breath. He reports he has a mild headache. He denies any fever or chills, or signs of infection right lately. He states that he has had no significant cardiac history.Patient denies any recent fever, chills, shortness of breath, chest pain, back pain, abdominal pain, nausea vomiting, numbness or tingling, dysuria or hematuria, constipation or diarrhea, headaches or visual changes, or any other current symptoms - Related Data Home Medications Medication Instructions Recorded Confirmed ALPRAZolam [Xanax] 0.25 mg PO DAILY PRN 09/11/16 07/28/17 FLUoxetine HCL [PROzac] 40 mg PO HS 11/02/16 07/28/17 Hydroxychloroquine Sulfate 200 mg PO BID 12/09/16 07/28/17 [Plaquenil] Simvastatin [Zocor] 40 mg PO HS 12/09/16 07/28/17 predniSONE 10 mg PO DAILY 06/14/17 07/28/17 Allergies Allergy/AdvReac Type Severity Reaction Status Date / Time No Known Allergies Allergy Verified 07/28/17 10:07 Review of Systems ROS Statement: Those systems with pertinent positive or pertinent negative responses have been documented in the HPI. ROS Other: All systems not noted in ROS Statement are negative. Past Medical History Past Medical History: Hyperlipidemia, Thyroid Disorder Additional Past Medical History / Comment(s): sarcoidosis History of Any Multi-Drug Resistant Organisms: None Reported Additional Past Surgical History / Comment(s): neck biopsy 10/2016, Past Anesthesia/Blood Transfusion Reactions: No Reported Reaction Past Psychological History: ADD/ADHD, Anxiety, Depression Smoking Status: Former smoker Past Alcohol Use History: Occasional Past Drug Use History: None Reported - Past Family History Mother Family Medical History: Cancer Father Additional Family Medical History / Comment(s): arthritis General Exam - General Exam Comments Initial Comments: 37-year-old male. Limitations: no limitations General appearance: alert, in no apparent distress Head exam: Present: atraumatic, normocephalic, normal inspection Eye exam: Present: normal appearance, PERRL, EOMI. Absent: scleral icterus, conjunctival injection, periorbital swelling ENT exam: Present: normal exam, mucous membranes moist Neck exam: Present: normal inspection. Absent: tenderness, meningismus, lymphadenopathy Respiratory exam: Present: normal lung sounds bilaterally. Absent: respiratory distress, wheezes, rales, rhonchi, stridor Cardiovascular Exam: Present: regular rate, normal rhythm, normal heart sounds. Absent: systolic murmur, diastolic murmur, rubs, gallop, clicks GI/Abdominal exam: Present: soft, normal bowel sounds. Absent: distended, tenderness, guarding, rebound, rigid Extremities exam: Present: normal inspection, full ROM, normal capillary refill. 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 He states that it occurred while he is working. He had an elevated blood pressure that time. Few days (had some diarrhea. He states that has now subsided. He denies any significant chest pain shortness breath this time. Does report mild headache. Patient's labwork was reviewed and negative for any abdomen ice. EKG was within normal limits. At this time patient's chest x-ray was reviewed and was negative. All his labwork was remarkable. No neurological deficits. Discuss etiologies for the dizziness including signs of infection vertigo like symptoms as well as dehydration. Discussed that all of his cardiac workup is negative at this time. Discussed should follow-up with primary care provider and return parameters were discussed. - Lab Data Result diagrams: 07/28/17 10:45 07/28/17 10:45 Lab Results 07/28/17 07/28/17 07/28/17 Range/Units 10:45 10:45 10:45 WBC 8.7 (3.8-10.6) k/uL RBC 4.57 (4.30-5.90) m/uL Hgb 14.4 (13.0-17.5) gm/dL Hct 41.3 (39.0-53.0) % MCV 90.2 (80.0-100.0) fL MCH 31.6 (25.0-35.0) pg MCHC 35.0 (31.0-37.0) g/dL RDW 12.3 (11.5-15.5) % Plt Count 264 (150-450) k/uL Neutrophils % 85 % Lymphocytes % 7 % Monocytes % 5 % Eosinophils % 2 % Basophils % 0 % Neutrophils # 7.4 (1.3-7.7) k/uL Lymphocytes # 0.6 L (1.0-4.8) k/uL Monocytes # 0.5 (0-1.0) k/uL Eosinophils # 0.1 (0-0.7) k/uL Basophils # 0.0 (0-0.2) k/uL PT 10.6 (9.0-12.0) sec INR 1.1 (<1.2) Sodium 143 (137-145) mmol/L Potassium 4.4 (3.5-5.1) mmol/L Chloride 105 (98-107) mmol/L Carbon Dioxide 23 (22-30) mmol/L Anion Gap 15 mmol/L BUN 19 (9-20) mg/dL Creatinine 0.92 (0.66-1.25) mg/dL Est GFR (CKD-EPI)AfAm >90 (>60 ml/min/1.73 sqM) Est GFR (CKD-EPI)NonAf >90 (>60 ml/min/1.73 sqM) Glucose 95 (74-99) mg/dL Calcium 9.9 (8.4-10.2) mg/dL Total Bilirubin 1.4 H (0.2-1.3) mg/dL AST 25 (17-59) U/L ALT 39 (21-72) U/L Alkaline Phosphatase 55 (38-126) U/L Troponin I (0.000-0.034) ng/mL Total Protein 7.2 (6.3-8.2) g/dL Albumin 4.7 (3.5-5.0) g/dL Urine Color Urine Appearance (Clear) Urine pH (5.0-8.0) Ur Specific Marble (1.001-1.035) Urine Protein (Negative) Urine Glucose (UA) (Negative) Urine Ketones (Negative) Urine Blood (Negative) Urine Nitrite (Negative) Urine Bilirubin (Negative) Urine Urobilinogen (<2.0) mg/dL Ur Leukocyte Esterase (Negative) 07/28/17 07/28/17 Range/Units 10:45 10:45 WBC (3.8-10.6) k/uL RBC (4.30-5.90) m/uL Hgb (13.0-17.5) gm/dL Hct (39.0-53.0) % MCV (80.0-100.0) fL MCH (25.0-35.0) pg MCHC (31.0-37.0) g/dL RDW (11.5-15.5) % Plt Count (150-450) k/uL Neutrophils % % Lymphocytes % % Monocytes % % Eosinophils % % Basophils % % Neutrophils # (1.3-7.7) k/uL Lymphocytes # (1.0-4.8) k/uL Monocytes # (0-1.0) k/uL Eosinophils # (0-0.7) k/uL Basophils # (0-0.2) k/uL PT (9.0-12.0) sec INR (<1.2) Sodium (137-145) mmol/L Potassium (3.5-5.1) mmol/L Chloride (98-107) mmol/L Carbon Dioxide (22-30) mmol/L Anion Gap mmol/L BUN (9-20) mg/dL Creatinine (0.66-1.25) mg/dL Est GFR (CKD-EPI)AfAm (>60 ml/min/1.73 sqM) Est GFR (CKD-EPI)NonAf (>60 ml/min/1.73 sqM) Glucose (74-99) mg/dL Calcium (8.4-10.2) mg/dL Total Bilirubin (0.2-1.3) mg/dL AST (17-59) U/L ALT (21-72) U/L Alkaline Phosphatase (38-126) U/L Troponin I <0.012 (0.000-0.034) ng/mL Total Protein (6.3-8.2) g/dL Albumin (3.5-5.0) g/dL Urine Color Yellow Urine Appearance Clear (Clear) Urine pH 6.0 (5.0-8.0) Ur Specific Marble 1.018 (1.001-1.035) Urine Protein Negative (Negative) Urine Glucose (UA) Negative (Negative) Urine Ketones Negative (Negative) Urine Blood Negative (Negative) Urine Nitrite Negative (Negative) Urine Bilirubin Negative (Negative) Urine Urobilinogen <2.0 (<2.0) mg/dL Ur Leukocyte Esterase Negative (Negative) 07/28/17 12:38 EKG performed at 1033 shows normal sinus rhythm, ventricular rate of 76 bpm. Was 134 most seconds. QRS ration 90 ms. QT QTC 396/444 ms. No evidence of ST elevation or T-wave inversion. No evidence of atrial or ventricular arrhythmias. - Radiology Data Radiology results: report reviewed Chest x-ray was reviewed and negative for any acute process. Disposition Clinical Impression: Dizziness, Episode of hypertension Disposition: HOME SELF-CARE Condition: Good Instructions: Dizziness (ED) Additional Instructions: Patient advised follow-up with primary care provider in the next 1-2 days. Make sure remaining hydrated. Return to emergency department if any alarming signs or symptoms occur. Referrals: Alberto Sarmiento MD [Primary Care Provider] - 1-2 days Time of Disposition: 13:18
[2017-07-28] MEDS ORDERED: diphenhydrAMINE 50 MG/ML 1 ML VIAL IVP STA (12:32)
[2017-07-28] MEDS ORDERED: LORazepam 1 MG TAB PO STA (12:32)
[2017-07-28] MEDS ORDERED: METOCLOPRAMIDE 5 MG/ML 2 ML VIAL IVP STA (12:32)
[2017-07-28 13:43] VITALS: BP 132/70; PULSE 64; RESP 20
== END 2017-07-28 13:43 | disposition home or self-care (01) ==
LOC: EC 09:44
DX: I10 Essential (primary) hypertension (principal); R42 Dizziness and giddiness; R19.7 Diarrhea, unspecified; F32.9 Major depressive disorder, single episode, unspecified; E78.5 Hyperlipidemia, unspecified; Z87.891 Personal history of nicotine dependence; Z79.51 Long term (current) use of inhaled steroids; Z79.899 Other long term (current) drug therapy; Z53.8 Procedure and treatment not carried out for other reasons
CPT/HCPCS: 36415; 71046; 80053; 81003; 84484; 85025; 85610; 93005; 96360; 96361; 99284

== ENCOUNTER → 2017-11-05 | Outpatient (CLI) | payer BC ==
[~2017-11-05] MED LIST changes: +COSYNTROPIN 0.25 MG VIAL IVP NR; -DEXAMETHASONE SOD PHOSPHATE 10 MG/ML 1 ML VIAL IV ONE; -LIDOCAINE 1% 20 ML VIAL (10MG/ML) FOR IV START INTRADERMA PRN; -ONDANSETRON 4 MG/2 ML VIAL IVP ONE; -Pre Op ABX Message 1 EACH MISC MISCELLANE ONE; -SCOPOLAMINE 1.5MG/72HR PATCH TRANSDERM ONE
[2017-11-05 11:07] VITALS: BP 130/80; PULSE 82; RESP 16; TEMP 98.6
[2017-11-05 11:46] LABS: C Reactive Protein <5.0 mg/L (<10.0)
== END | disposition home or self-care (01) ==
LOC: PROCWHC3 10:59
PROVIDERS: ATTEND Internal Medicine Critical Care Medicine
DX: D86.9 Sarcoidosis, unspecified (principal); M62.81 Muscle weakness (generalized); R53.82 Chronic fatigue, unspecified; Z79.899 Other long term (current) drug therapy
CPT/HCPCS: 85652; 82533; 82164; 86140; 82024; 96374; J0834

== ENCOUNTER → 2017-11-09 | Outpatient (CLI) | payer BC ==
[2017-11-09 17:34] LABS: Calcium 24 Hour,Urine 176.9 mg/24 hr
== END | disposition home or self-care (01) ==
LOC: LABWHC1 10-29 12:09
PROVIDERS: ATTEND Internal Medicine Critical Care Medicine
DX: D86.9 Sarcoidosis, unspecified (principal); R53.82 Chronic fatigue, unspecified; M62.81 Muscle weakness (generalized); Z79.899 Other long term (current) drug therapy
CPT/HCPCS: 81050; 82340

== ENCOUNTER 2019-02-03 12:05 | Inpatient (IN) | payer BC, OTHER ==
[2019-02-03] MEDS ORDERED: VANCOMYCIN IV PER PHARMACY 1 EACH MISC MISCELLANE PRN (12:14)
--- NOTE | 2019-02-03 12:15 | ED ---
General Adult HPI - General Chief complaint: Psychiatric Symptoms Stated complaint: Mental health-depression Time Seen by Provider: 02/03/19 12:13 Source: patient Mode of arrival: ambulatory Limitations: no limitations - History of Present Illness Initial comments: Dictation was produced using [employer] dictation software. please excuse any grammatical, word or spelling errors. Chief Complaint: 39-year-old male past medical history of sarcoidosis presents with suicidal ideation. History of Present Illness: 39-year-old male with past medical history of sarcoidosis since with suicidal ideation. He states that his depression and suicidality began in October. Patient states that he just broke up with his ex- girlfriend. Him and his son are currently homeless. Patient states he is suicidal and wants to shoot himself in the head with a gun or jump off a bridge. Patient has no medical complaints at this time. Patient was also asked to leave by his parents while he was recently staying with. The ROS documented in this emergency department record has been reviewed and confirmed by me. Those systems with pertinent positive or negative responses have been documented in the HPI. All other systems are other negative and/or noncontributory. PHYSICAL EXAM: General Impression: Alert and oriented x3, not in acute distress HEENT: Normocephalic atraumatic, extra-ocular movements intact, pupils equal and reactive to light bilaterally, mucous membranes moist. Cardiovascular: Heart regular rate and rhythm, S1&S2 audible, no murmurs, rubs or gallops Chest: Lungs clear to auscultation bilaterally, no rhonchi, no wheeze, no rales Abdomen: Bowel sounds present, abdomen soft, non-tender, non-distended, no organomegaly Musculoskeletal: Pulses present and equal in all extremities, no peripheral edema Motor: no focal deficits noted Neurological: CN II-XII grossly intact, no focal motor or sensory deficits noted Skin: Intact with no visualized rashes Psych: Normal affect and mood ED course: 39-year-old male presents with suicidal ideation. Arrival are within acceptable limits. Patient's medical complaints at this time. Patient medically cleared for EPS evaluation. Patient evaluate by EPS recommended inpatient admission. She is agreeable and will be admitted to inpatient psychiatry. - Related Data Home Medications Medication Instructions Recorded Confirmed FLUoxetine HCL [PROzac] 40 mg PO HS 11/02/16 02/03/19 Allergies Allergy/AdvReac Type Severity Reaction Status Date / Time No Known Allergies Allergy Verified 02/03/19 12:19 Review of Systems ROS Statement: Those systems with pertinent positive or pertinent negative responses have been documented in the HPI. ROS Other: All systems not noted in ROS Statement are negative. Past Medical History Past Medical History: Hyperlipidemia, Thyroid Disorder Additional Past Medical History / Comment(s): sarcoidosis History of Any Multi-Drug Resistant Organisms: None Reported Additional Past Surgical History / Comment(s): neck biopsy 10/2016, Past Anesthesia/Blood Transfusion Reactions: No Reported Reaction Past Psychological History: ADD/ADHD, Anxiety, Depression Smoking Status: Current some day smoker Past Alcohol Use History: Occasional Past Drug Use History: Marijuana - Past Family History Mother Family Medical History: Cancer Father Additional Family Medical History / Comment(s): arthritis General Exam Limitations: no limitations Course Vital Signs 02/03/19 12:06 Temperature 98.2 F Pulse Rate 79 Respiratory 18 Rate Blood Pressure 128/94 O2 Sat by Pulse 95 Oximetry Medical Decision Making - Lab Data Lab Results 02/03/19 Range/Units 13:39 Urine Opiates Screen Not Detected (NotDetected) Ur Oxycodone Screen Not Detected (NotDetected) Urine Methadone Screen Not Detected (NotDetected) Ur Propoxyphene Screen Not Detected (NotDetected) Ur Barbiturates Screen Not Detected (NotDetected) U Tricyclic Antidepress Not Detected (NotDetected) Ur Phencyclidine Scrn Not Detected (NotDetected) Ur Amphetamines Screen Not Detected (NotDetected) U Methamphetamines Scrn Not Detected (NotDetected) U Benzodiazepines Scrn Not Detected (NotDetected) Urine Cocaine Screen Not Detected (NotDetected) U Marijuana (THC) Screen Detected H (NotDetected) Disposition Clinical Impression: Suicidal ideation Disposition: ADMITTED IP TO THIS HOSP Condition: Fair Referrals: Alberto Sarmiento MD [Primary Care Provider] - 1-2 days Decision Time: 15:54
[2019-02-03] MEDS ORDERED: VANCOMYCIN 1,250 MG in SODIUM CHLORIDE 0.9% 250 ML IVPB STA (12:16)
[2019-02-03 14:23] LABS: Amphetamine Screen,Urine Not Detected (NotDetected); Barbiturate Screen,Urine Not Detected (NotDetected); Benzodiazepines Screen,Urine Not Detected (NotDetected); Cocaine Screen,Urine Not Detected (NotDetected); Methadone Screen, Urine Not Detected (NotDetected); Opiate Screen,Urine Not Detected (NotDetected); Oxycodone Screen, Urine Not Detected (NotDetected); Phencyclidine Screen,Urine Not Detected (NotDetected); Tricyclic Antidepressant,Urine Not Detected (NotDetected); Urn Cannabinoid Scrn Detected (NotDetected)
[2019-02-03] MEDS ORDERED: MAG HYDROX/AL HYDROX/SIMETH 30 ML CUP PO PRN (20:56)
[2019-02-03] MEDS ORDERED: MAGNESIUM HYDROXIDE 2,400 MG/10 ML CUP PO PRN (20:56)
[2019-02-03] MEDS ORDERED: ACETAMINOPHEN TAB 325 MG TAB PO PRN (20:56)
[2019-02-03] MEDS: LORazepam 1 MG TAB PO PRN (21:33)
[2019-02-04 08:12] LABS: Basophils % (A) 1 %; Eosinophils # (A) 0.2 k/uL (0-0.7); Eosinophils % (A) 4 %; HCT 43.2 % (39.0-53.0); Lymphocytes # (A) 0.6 k/uL (1.0-4.8); Lymphocytes % (A) 15 %; MCH 30.4 pg (25.0-35.0); MCHC 32.4 g/dL (31.0-37.0); MCV 93.7 fL (80.0-100.0); Mean Platelet Volume 6.8; Monocytes # (A) 0.2 k/uL (0-1.0); Monocytes % (A) 5 %; Neutrophils # (A) 3.2 k/uL (1.3-7.7); Neutrophils % (A) 73 %; Platelet Count 237 k/uL (150-450); RBC 4.61 m/uL (4.30-5.90); RDW 12.9 % (11.5-15.5); WBC 4.4 k/uL (3.8-10.6)
[2019-02-04 08:27] LABS: ALT 36 U/L (21-72); AST 26 U/L (17-59); African American GFR (CKD) >90 (>60 ml/min/1.73 sqM); Albumin 4.6 g/dL (3.5-5.0); Alkaline Phosphatase 67 U/L (38-126); Anion Gap 9 mmol/L; Blood Urea Nitrogen 14 mg/dL (9-20); Calcium 9.7 mg/dL (8.4-10.2); Carbon Dioxide 27 mmol/L (22-30); Chloride 104 mmol/L (98-107); Cholesterol 217 mg/dL (<200); Glucose 101 mg/dL (74-99); HDL Cholesterol 28 mg/dL (40-60); Potassium 4.5 mmol/L (3.5-5.1); Sodium 140 mmol/L (137-145); Total Bilirubin 0.9 mg/dL (0.2-1.3); Total Protein 7.6 g/dL (6.3-8.2)
[2019-02-04 08:37] LABS: Triglycerides 584 mg/dL (<150)
[2019-02-04] MEDS: NICOTINE 21MG/24HR PATCH TRANSDERM SCH (08:49)
[2019-02-04] MEDS: LORazepam 1 MG TAB PO PRN ×2 (09:11→19:59)
--- NOTE | 2019-02-04 12:20 | P.HP ---
Psychiatric H&P - . H&P Date: 02/04/19 History & Physical: Allergies Allergy/AdvReac Type Severity Reaction Status Date / Time No Known Allergies Allergy Verified 02/03/19 12:19 Vital Signs Temp 97.8 F 02/04/19 06:51 Pulse 93 02/04/19 06:51 Resp 18 02/04/19 06:51 BP 142/77 02/04/19 06:51 Pulse Ox 97 02/03/19 17:24 Intake & Output 02/03/19 02/04/19 02/04/19 18:59 06:59 18:59 Weight 63.503 kg Laboratory Last Values WBC 4.4 k/uL (3.8-10.6) 02/04/19 07:40 RBC 4.61 m/uL (4.30-5.90) 02/04/19 07:40 Hgb 14.0 gm/dL (13.0-17.5) 02/04/19 07:40 Hct 43.2 % (39.0-53.0) 02/04/19 07:40 MCV 93.7 fL (80.0-100.0) 02/04/19 07:40 MCH 30.4 pg (25.0-35.0) 02/04/19 07:40 MCHC 32.4 g/dL (31.0-37.0) 02/04/19 07:40 RDW 12.9 % (11.5-15.5) 02/04/19 07:40 Plt Count 237 k/uL (150-450) 02/04/19 07:40 Neutrophils % 73 % 02/04/19 07:40 Lymphocytes % 15 % 02/04/19 07:40 Monocytes % 5 % 02/04/19 07:40 Eosinophils % 4 % 02/04/19 07:40 Basophils % 1 % 02/04/19 07:40 Neutrophils # 3.2 k/uL (1.3-7.7) 02/04/19 07:40 Lymphocytes # 0.6 k/uL (1.0-4.8) L 02/04/19 07:40 Monocytes # 0.2 k/uL (0-1.0) 02/04/19 07:40 Eosinophils # 0.2 k/uL (0-0.7) 02/04/19 07:40 Basophils # 0.0 k/uL (0-0.2) 02/04/19 07:40 Sodium 140 mmol/L (137-145) 02/04/19 07:40 Potassium 4.5 mmol/L (3.5-5.1) 02/04/19 07:40 Chloride 104 mmol/L (98-107) 02/04/19 07:40 Carbon Dioxide 27 mmol/L (22-30) 02/04/19 07:40 Anion Gap 9 mmol/L 02/04/19 07:40 BUN 14 mg/dL (9-20) 02/04/19 07:40 Creatinine 0.94 mg/dL (0.66-1.25) 02/04/19 07:40 Est GFR (CKD-EPI)AfAm >90 (>60 ml/min/1.73 sqM) 02/04/19 07:40 Est GFR (CKD-EPI)NonAf >90 (>60 ml/min/1.73 sqM) 02/04/19 07:40 Glucose 101 mg/dL (74-99) H 02/04/19 07:40 Calcium 9.7 mg/dL (8.4-10.2) 02/04/19 07:40 Total Bilirubin 0.9 mg/dL (0.2-1.3) 02/04/19 07:40 AST 26 U/L (17-59) 02/04/19 07:40 ALT 36 U/L (21-72) 02/04/19 07:40 Alkaline Phosphatase 67 U/L (38-126) 02/04/19 07:40 Total Protein 7.6 g/dL (6.3-8.2) 02/04/19 07:40 Albumin 4.6 g/dL (3.5-5.0) 02/04/19 07:40 Triglycerides 584 mg/dL (<150) H 02/04/19 07:40 Cholesterol 217 mg/dL (<200) H 02/04/19 07:40 LDL Cholesterol, Calc mg/dL (0-99) 02/04/19 07:40 HDL Cholesterol 28 mg/dL (40-60) L 02/04/19 07:40 TSH 3.550 mIU/L (0.465-4.680) 02/04/19 07:40 Urine Opiates Screen Not Detected (NotDetected) 02/03/19 13:39 Ur Oxycodone Screen Not Detected (NotDetected) 02/03/19 13:39 Urine Methadone Screen Not Detected (NotDetected) 02/03/19 13:39 Ur Propoxyphene Screen Not Detected (NotDetected) 02/03/19 13:39 Ur Barbiturates Screen Not Detected (NotDetected) 02/03/19 13:39 U Tricyclic Antidepress Not Detected (NotDetected) 02/03/19 13:39 Ur Phencyclidine Scrn Not Detected (NotDetected) 02/03/19 13:39 Ur Amphetamines Screen Not Detected (NotDetected) 02/03/19 13:39 U Methamphetamines Scrn Not Detected (NotDetected) 02/03/19 13:39 U Benzodiazepines Scrn Not Detected (NotDetected) 02/03/19 13:39 Urine Cocaine Screen Not Detected (NotDetected) 02/03/19 13:39 U Marijuana (THC) Screen Detected (NotDetected) H 02/03/19 13:39 02/04/19 12:11 IDENTIFYING DATA: Patient is a 39-year-old male who is currently living with his mother and father is unemployed however used to work as a general utility machine operator and has 2 kids HPI: Patient presented to the hospital with increasing depression, suicidal thoughts of possibly jumping off a bridge or shooting himself. Patient was admitted to the mental health floor for further evaluation and treatment. Patient claims of chronic depression and anxiety since he was 16 years old and describes having panic attacks approximately 5-6 times a week and describes him as having chest pain and shortness of breath. He claims that they may be related to his sarcoidosis which was diagnosed in 2017. Patient claims that he has multiple stressors at home including recently losing his job in October. He also claims that his girlfriend broke up with him and they have a child together. He states that his girlfriend did not like his other son as he has ADHD and was not taking care of himself and claims that they were fighting back and forth frequently. He states that he also found out Wednesday that his parents do not want him in the house anymore and he has to find a place to live. Patient was tearful when describing his stressors. He also endorsed having poor sleep at night, claims that his concentration is poor. He also stated that his appetite is okay at this time and he denies any symptoms of uriel in the past. Patient denies any suicidal or homicidal ideations intent or plan. At this time patient denies any auditory or visual hallucinations. Patient denies any flight of ideas racing thoughts and increased in goal directed behavior. Patient admits to using marijuana nightly for sleep and also claims to drink alcohol 1-2 beers a week mainly while watching football. He also endorses switching onto vaping instead of smoking cigarettes. PAST PSYCHIATRIC HISTORY: Patient states that he has a chronic history of depression and anxiety along with panic attacks. Patient denies any previous psychiatric admissions and denies any outpatient follow-up. He denies any previous history of suicide attempts. Patient claims that he's been on several SSRIs in the past and most frequently has been on Prozac 40 mg nightly. PMH: Patient has a history of sarcoidosis diagnosed in 2017, lower back pain and osteoarthritis ALLERGIES: as per EMR CHEMICAL DEPENDENCY HISTORY: as per HPI FAMILY PSYCHIATRIC/SUBSTANCE USE HISTORY: States that his mother and sister both have anxiety and panic attacks. Patient also claimed that his brother of a heroin overdose SOCIAL HISTORY: He states that he was born in the [facility] and moved out of [place]. Patient currently lives with his mother and father is unemployed and collecting unemployment. Patient has 2 kids is single. He states that he dropped out of school in the ninth grade MENTAL STATUS EXAM: General Appearance: Patient appears to be stated age is alert, directable and attempts to cooperate. Patient has fair hygiene and fair grooming. Behavior: Patient is calmly seated without any agitated behavior. Speech: Patient's speech is fluent and nonpressured. Soft tone Mood/Affect: Patient reports their mood is depressed, affect is congruent and constricted. Suicidality/Homicidality: Patient denies having any suicidal or homicidal ideation intent or plan. Perceptions: Patient denies any auditory or visual hallucinations. Though content/process: There is no evidence of any delusional thought content and thought process is linear and goal-directed. [place] and depressive content. Memory and concentration: AOX3, grossly intact for the purposes of this session. Can spell "WORLD" backwards Judgment and insight: poor STRENGTHS/WEAKNESSES: strength is that patient is resilient, weaknesses that patient has chronic mental health problems. INTELLECT: Below average IMPRESSIONS: Major depressive disorder, moderate-severe, recurrent Anxiety disorder rule out panic disorder Cannabis use disorder Nicotine dependence PLAN: -Patient is admitted under voluntary status to MHU for stabilization of psychiatric symptoms and safety. Patient signed adult voluntary form and medication consent and is placed in patient's chart. -Medications : Will start patient on Prozac 40 mg nightly for anxiety/ depression. We'll also start patient on trazodone 50 mg daily at bedtime for insomnia/mood. Vistaril 25 mg every 6 hours when necessary for anxiety. -Ativan PRN for agitation/aggression -Patient was counselled on substance abuse and desired to cut back on use -Patient was informed of the risks, benefits and side effects of the medication and patient verbally consented to taking the medications. Patient signed med consent form and was placed in chart. -NRT - nicotine patch -SW on board for discharge planning
--- NOTE | 2019-02-04 14:51 | P.CONS ---
History of Present Illness - Reason for Consult Consult date: 02/04/19 Medical management Requesting physician: Mario Alberto Canas - Chief Complaint Suicidal - History of Present Illness Consultation: This is a 39-year-old patient of Dr. Alberto Sarmiento. Patient's had a followed with his ex girlfriend. That another social reasons awaiting the patient to be suicidal. He is significantly depressed. He has a son from a previous relationship. Does not have a place to stay. He was staying with his parents and has been asked to leave. [place] like jumping off a bridge or shooting his head with a gun. Has a history of sarcoidosis. That is stable. No respiratory symptoms. Process of chronic low back pain. Has been having trouble sleeping. No change in his bowel pattern. Appetite is fair. Admitted to the psychiatry unit. Review of systems: GEN.: None EYES: None HEENT: None NECK: None RESPIRATORY: None CARDIOVASCULAR: None GASTROINTESTINAL: None GENITOURINARY: None MUSCULOSKELETAL: Intermittent low back pain LYMPHATICS: None HEMATOLOGICAL: None PSYCHIATRY: As above] NEUROLOGICAL: [Trouble sleeping Past medical history to include: Hyperlipidemia, thyroid disorder, sarcoidosis, ADHD, anxiety, depression Social history: Has a son from a previous relationship. Does smoke occasionally. Marijuana sometimes. Alcohol occasionally. Physical examination: VITAL SIGNS: 98.2, 79, 18, 128/94, 95% room air GENERAL: Average built, sitting up, comfortable. EYES: Pupils equal. Conjunctiva normal. HEENT: External appearance of nose and ears normal, oral cavity grossly normal. NECK: JVD not raised; masses not palpable. HEART: First and second heart sounds are normal; no edema. LUNGS: Respiratory rate normal; clear to auscultation. ABDOMEN: Soft, nontender, liver spleen not palpable, no masses palpable. PSYCH: Alert and oriented x3; mood and affect bit lowl. NEUROLOGICAL: Cranial nerves grossly intact; no facial asymmetry, power and sensation grossly intact. LYMPHATICS: No lymph nodes palpable in the axilla and neck INVESTIGATIONS, reviewed in the clinical context: White count 4.4 hemoglobin 14 platelets 237 potassium 4.5 creatinine 0.94 Total cholesterol 217 triglycerides 584 TSH 3.5 Urine drug screen positive for marijuana Assessment: -Major depression with suicidal ideation -Recreational marijuana use -Hyper triglyceridemia -Hyperlipidemia -Chronic lower back pain could be lumbago -Insomnia from social issues -Sarcoidosis currently asymptomatic Plan: Patient advised against use of marijuana smoking. May use melatonin for sleep should follow with his family doctor upon discharge. Thank you Dr. Canas Past Medical History Past Medical History: Hyperlipidemia, Thyroid Disorder Additional Past Medical History / Comment(s): sarcoidosis History of Any Multi-Drug Resistant Organisms: None Reported Additional Past Surgical History / Comment(s): neck biopsy 10/2016, Past Anesthesia/Blood Transfusion Reactions: No Reported Reaction Past Psychological History: ADD/ADHD, Anxiety, Depression Smoking Status: Current some day smoker Past Alcohol Use History: Occasional Past Drug Use History: Marijuana - Past Family History Mother Family Medical History: Cancer Father Additional Family Medical History / Comment(s): arthritis Medications and Allergies Home Medications Medication Instructions Recorded Confirmed Type FLUoxetine HCL [PROzac] 40 mg PO HS 11/02/16 02/03/19 History Allergies Allergy/AdvReac Type Severity Reaction Status Date / Time No Known Allergies Allergy Verified 02/03/19 12:19 Physical Exam Vitals: Vital Signs Temp Pulse Pulse Resp BP BP Pulse Ox 02/04/19 06:51 97.8 F 93 18 142/77 02/03/19 21:57 97.7 F 66 18 137/99 02/03/19 17:24 98 F 73 20 122/83 97 02/03/19 12:06 98.2 F 79 18 128/94 95 Results CBC & Chem 7: 02/04/19 07:40 02/04/19 07:40 Labs: Abnormal Lab Results - Last 24 Hours (Table) 02/03/19 02/04/19 02/04/19 Range/Units 13:39 07:40 07:40 Lymphocytes # 0.6 L (1.0-4.8) k/uL Glucose 101 H (74-99) mg/dL Triglycerides 584 H (<150) mg/dL Cholesterol 217 H (<200) mg/dL HDL Cholesterol 28 L (40-60) mg/dL U Marijuana (THC) Screen Detected H (NotDetected)
[2019-02-04] MEDS: hydrOXYzine PAMOATE 25 MG CAP PO PRN (19:01)
[2019-02-04] MEDS: traZODone HCL 50 MG TAB PO SCH (19:59)
[2019-02-04 20:57] LABS: Hemoglobin A1C 4.8 % (4.0-6.0)
[2019-02-04] MEDS ORDERED: FLUoxetine HCL 20 MG CAP PO SCH (21:00)
[2019-02-05] MEDS: NICOTINE 21MG/24HR PATCH TRANSDERM SCH (08:03)
[2019-02-05] MEDS: LORazepam 1 MG TAB PO PRN ×2 (09:32→18:36)
--- NOTE | 2019-02-05 10:37 | P.PN ---
Progress Note - Text Progress Note Date: 02/05/19 Interval history: Patient was seen at the bedside and was agreeable speak to write in the office. Patient claims that she recently took an Ativan in the morning as he is feeling anxious claims that he slept a little bit better last night on the trazodone. Patient claims that his mood is mildly improving on the current medications and is okay with increasing his Prozac at night. Patient states that he is worried about his home situation and doesn't know where he is going to live and also spoke about his son being to go to school and asked when he can be discharged. He states his energy level and appetite are fair. At this time patient denies any suicidal or homicidal ideations intent or plan. Denies any Auditory or visual hallucinations. Patient denies any side effects from the medications and has been compliant with meds. Mental status exam: General Appearance: Patient appears to be stated age is alert, and cooperative. Fair hygiene and fair grooming. Behavior: No agitated behavior. Patient is calm and directable Speech: Patient's speech is fluent and nonpressured. Soft tone Mood/Affect: Mood is improving, affect is congruent and constricted. Suicidality/Homicidality: Patient denies having any suicidal or homicidal ideation intent or plan. Perceptions: Patient denies any auditory or visual hallucinations. Though content/process: There is no evidence of any delusional thought content and thought process is linear and goal-directed. Memory and concentration: AOX3, grossly intact for the purposes of this session Judgment and insight: improving mildly Assessment/Plan: Continue with current diagnosis. Patient continues to meet criteria for inpatient psychiatric admission for symptom stabilization and safety. Will increase Prozac to 60 mg nightly and the rest of medication regimen will be continued. Patient was encouraged to use Vistaril for anxiety i nstead of Ativan. Monitor for medication compliance and for any psychotropic medication side effects. Will continue to monitor ongoing response to treatment.
[2019-02-05] MEDS: traZODone HCL 50 MG TAB PO SCH (21:29)
[2019-02-05] MEDS: FLUoxetine HCL 20 MG CAP PO SCH (21:29)
[2019-02-06] MEDS: NICOTINE 21MG/24HR PATCH TRANSDERM SCH (09:09)
[2019-02-06] MEDS: hydrOXYzine PAMOATE 25 MG CAP PO PRN (09:10)
[2019-02-06] MEDS: LORazepam 1 MG TAB PO PRN (16:00)
--- NOTE | 2019-02-06 18:12 | P.PN ---
Progress Note - Text Progress Note Date: 02/06/19 Interval History: The patient was evaluated today. He reports feels better emotionally and mi nimizes his depression symptoms. Patient reports feeling more active and better motivation level. He denies sleep or appetite problems since yesterday. Denies feeling hopeless, worthless or suicidal. He denies any HI and denies A/ V hallucinations. Patient denies any paranoid ideation. He denies any manic or psychotic symptoms. Nursing report patient still has intermittent suicidal ideation Mental status exam: General Appearance: Patient appears to be stated age is alert, and cooperative. Fair hygiene and fair grooming. Behavior: No agitated behavior. Patient is calm and cooperative. Speech: Patient's speech is fluent and non-pressured. Soft tone Mood/Affect: Mood is improving, affect is congruent and constricted. Perceptions: Patient denies any auditory or visual hallucinations. Though content/process: There is no evidence of any delusional thought content and thought process is linear and goal-directed. Denies S/H ideation, intent or plan. Memory and concentration: AOX3, grossly intact for the purposes of this session Judgment and insight:Improving Assessment: Major depressive disorder, recurrent, moderate to severe without psychotic features. Anxiety disorder, unspecified. Cannabis use disorder, moderate. Tobacco Use disorder. Plan: Continue inpatient level of care for further stabilization. Continue 15 minutes check. Continue patient's education and counseling. Consider consultation if needed. Medication: Continue Prozac 60 mg daily for depression and anxiety symptoms Continue Trazodone 50 mg at bedtime to help with insomnia and depression/ anxiety. Continue Vistaril 25 mg QID PRN anxiety. Discharge planning is ongoing.
[2019-02-06] MEDS: FLUoxetine HCL 20 MG CAP PO SCH (21:12)
[2019-02-06] MEDS: traZODone HCL 50 MG TAB PO SCH (21:12)
[2019-02-07 06:54] VITALS: TEMP 97.7
[2019-02-07] MEDS: NICOTINE 21MG/24HR PATCH TRANSDERM SCH (08:35)
[2019-02-07] MEDS: LORazepam 1 MG TAB PO PRN ×2 (08:35→17:17)
[2019-02-07 10:14] VITALS: BMI 33.4
--- NOTE | 2019-02-07 13:29 | P.PN ---
Progress Note - Text Progress Note Date: 02/07/19 Interval History: The patient was evaluated today, chart reviewed, and case discussed with the treatment team. Patient reports fair sleep with average 8 hours last night. Patient has been going to selected groups and other unit activities. He reports fair appetite. Patient has been compliant with his psychiatric medications and he denies any adverse effect. She reports improvement of his mood and denies feeling depressed, hopeless, or suicidal. He denies any manic symptoms, severe mood swings, or impulsive behavior. He denies any auditory or visual hallucinations, paranoid ideation, and no delusions could be elicited. Discussed discharge plan and patient agreed with discharge tomorrow. Mental status examination; Appearance: The patient appears stated age, adequately groomed and dressed, no specific features. Gait/posture: Normal gait, Normal arm swinging: No abnormal movements. Attitude and behavior: engaged, cooperative, eye contact. Motor activity: Normal psychomotor activity Speech: Normal rate, tone. Mood: Euthymic Affect: Constricted Thought form: goal-directed, linear, coherent. Thought content: Non-delusional, denies suicidal thoughts, denies homicidal thoughts, denies intentions or plans. Perception: Denies any auditory or visual hallucinations Attention: No impairment. Patient was able to repeat serial 5. Orientation: Patient patient was fully oriented to time place person and situation. Insight: Patient has fair insight about his psychiatric disorder. Judgment: Patient has fair judgment about his psychiatric treatment. Assessment: Major depressive disorder, recurrent, moderate to severe without psychotic features. Anxiety disorder, unspecified. Cannabis use disorder, moderate. Tobacco Use disorder. Plan: Continue inpatient level of care for further stabilization and discharge jackie garcia Continue 15 minutes check. Continue patient's education and counseling. Consider consultation if needed. Medication: Continue Prozac 60 mg daily for depression and anxiety symptoms Continue Trazodone 50 mg at bedtime to help with insomnia and depression/ anxiety. Continue Vistaril 25 mg QID PRN anxiety. Discharge planning is ongoing.
[2019-02-07] MEDS: hydrOXYzine PAMOATE 25 MG CAP PO PRN (15:02)
[2019-02-07] MEDS: FLUoxetine HCL 20 MG CAP PO SCH (20:58)
[2019-02-07] MEDS: traZODone HCL 50 MG TAB PO SCH (20:59)
[2019-02-08 06:46] VITALS: BP 114/80; PULSE 67; RESP 16
[2019-02-08] MEDS: NICOTINE 21MG/24HR PATCH TRANSDERM SCH (07:51)
[2019-02-08] MEDS: LORazepam 1 MG TAB PO PRN (08:47)
--- NOTE | 2019-02-08 09:15 | P.DS ---
Providers Date of admission: 02/03/19 20:42 Expected date of discharge: 02/08/19 Attending physician: Chai Lundy MD Consults: 02/03/19 20:56 Consult Physician Routine Consulting Provider: Janes Yoon Consult Reason/Comments: H&P for mental health admission Do you want consulting provider notified?: Yes, Notify in am Primary care physician: Alberto Sarmiento MD Hospital Course: Brief HPI: As per the HPI from initial psychiatric evaluation during this hospital stay: " Patient is a 39-year-old male who is currently living with his mother and father is unemployed however used to work as a senior vice president & general counsel and has 2 kids. Patient presented to the hospital with increasing depression, suicidal thoughts of possibly jumping off a bridge or shooting himself. Patient was admitted to the mental health floor for further evaluation and treatment. Patient claims of chronic depression and anxiety since he was 16 years old and describes having panic attacks approximately 5-6 times a week and describes him as having chest pain and shortness of breath. He claims that they may be related to his sarcoidosis which was diagnosed in 2016. Patient claims that he has multiple stressors at home including recently losing his job in October. He also claims that his girlfriend broke up with him and they have a child together. He states that his girlfriend did not like his other son as he has ADHD and was not taking care of himself and claims that they were fighting back and forth frequently. He states that he also found out Wednesday that his parents do not want him in the house anymore and he has to find a place to live. Patient was tearful when describing his stressors. He also endorsed having poor sleep at night, claims that his concentration is poor. He also stated that his appetite is okay at this time and he denies any symptoms of uriel in the past. Patient denies any suicidal or homicidal ideations intent or plan. At this time patient denies any auditory or visual hallucinations. Patient denies any flight of ideas racing thoughts and increased in goal directed behavior. Patient admits to using marijuana nightly for sleep and also claims to drink alcohol 1-2 beers a week mainly while watching football. He also endorses switching onto vaping instead of smoking cigarettes. " Hospital Course: Psychiatric: The patient was initiated on psychotropic medication Prozac for depression and anxiety, trazodone for depression and anxiety, and to help with sleep disturbances. The medication doses has been adjusted to optimize the stability of the psychiatric symptoms, and to avoid side effects. Patient tolerated the above medication/s very well, without side effects. The patient was admitted for a safe and supportive environment. A psychiatric, medical, and psychosocial evaluations were done on admission. The patient's hospital stay is unremarkable. Patient did not exhibit any aggression towards self self or others during his hospitalization, and there was no requirements for emergency medications or restraints. The patient attended son groups to obtain coping skills and process stress. Patient was compliant with his medic ations. Patient got along with his peers and with staff. The objective signs of depression and anxiety have been improved. He denies any suicidal ideation, not made any hopelessness/helplessness statements for more than 3 days prior to discharge. Maximum hospitalization benefit was reached and subsequently discharge was planned, and patient is appropriate to continue treatment on an outpatient basis. On the day of discharge the patient was able to create an appropriate safety plan and denies any side effect of medications. Discussion was held about need to stop use of marijuana, including its effects on mood, interaction with psychiatric medications, and it's role in events leading up to admission. Patient is in the contemplative stage of a change. Medical: Patient was educated about smoking cessation and a prescription for nicotine replacement therapy was given at time of discharge. Assessment: Assessment at the day of discharge: The patient was seen at the day of discharge. Patient denies any sleep or appetite disturbances, denies feeling hopeless, worthless or helpless. Also, patient denies any other depressive or manic symptoms. Patient denies any psychotic symptoms. Patient denies suicidal or homicidal thoughts, intention or plans. Nurses and therapist reported patient is psychiatrically stable, and agreed to discharge plan. Mental status examination on discharge: Appearance: The patient appears stated age, adequately groomed and dressed, no specific features. Gait/posture: Normal gait, Normal arm swinging: No abnormal movements. Attitude and behavior: engaged, cooperative, eye contact. Motor activity: Normal psychomotor activity Speech: Normal rate, tone. Mood:" Good" Affect: Constricted Thought form: goal-directed, linear, coherent. Thought content: Non-delusional, denies suicidal thoughts, denies homicidal thoughts, denies intentions or plans. Perception: Denies any auditory or visual hallucinations Attention: No impairment. Patient was able to repeat serial 5. Orientation: Patient patient was fully oriented to time place person and situation. Insight: Patient has fair insight about his psychiatric disorder. Judgment: Patient has fair judgment about his psychiatric treatment. Health Concerns: Activity: As tolerated Diet: Regular Special Instructions: Labs to be completed after discharge: As clinically indicated by his outpatient psychiatrist and PCP. Discharge checklist for suicide and violence to determine stability: Safety plan was discussed with the patient. Patient denies any current suicidal/ homicidal or violent ideation/plan/ intent. Patient has ability to address stressors/emotions. Patient understands and is comfortable with discharge plan. Outpatient appointments is near [facility] Emergency number (911, crisis number) provided to the patient. Avoid the use of street drugs and alcohol. Take all medications as prescribed. When you are in need of refills please contact your medical provider and/or outpatient psychiatrist to have this done. Please go to scheduled outpatient appointment for aftercare. If symptoms return or become worse call the crisis line at and/or go to the nearest emergency room for an evaluation. Pertinent Studies: Laboratory Tests Range/Units 02/03/19 02/04/19 02/04/19 13:39 07:40 07:40 WBC (3.8-10.6) k/uL 4.4 RBC (4.30-5.90) m/uL 4.61 Hgb (13.0-17.5) gm/dL 14.0 Hct (39.0-53.0) % 43.2 MCV (80.0-100.0) fL 93.7 MCH (25.0-35.0) pg 30.4 MCHC (31.0-37.0) g/dL 32.4 RDW (11.5-15.5) % 12.9 Plt Count (150-450) k/uL 237 Neutrophils % % 73 Lymphocytes % % 15 Monocytes % % 5 Eosinophils % % 4 Basophils % % 1 Neutrophils # (1.3-7.7) k/uL 3.2 Lymphocytes # (1.0-4.8) k/uL 0.6 L Monocytes # (0-1.0) k/uL 0.2 Eosinophils # (0-0.7) k/uL 0.2 Basophils # (0-0.2) k/uL 0.0 Sodium (137-145) mmol/L Potassium (3.5-5.1) mmol/L Chloride (98-107) mmol/L Carbon Dioxide (22-30) mmol/L Anion Gap mmol/L BUN (9-20) mg/dL Creatinine (0.66-1.25) mg/dL Est GFR (CKD-EPI)AfAm (>60 ml/min/1.73 sqM) Est GFR (CKD-EPI)NonAf (>60 ml/min/1.73 sqM) Glucose (74-99) mg/dL Estimated Ave Glu mg/dL 91 Hemoglobin A1c (4.0-6.0) % 4.8 Calcium (8.4-10.2) mg/dL Total Bilirubin (0.2-1.3) mg/dL AST (17-59) U/L ALT (21-72) U/L Alkaline Phosphatase (38-126) U/L Total Protein (6.3-8.2) g/dL Albumin (3.5-5.0) g/dL Triglycerides (<150) mg/dL Cholesterol (<200) mg/dL LDL Cholesterol, Calc (0-99) mg/dL HDL Cholesterol (40-60) mg/dL TSH (0.465-4.680) mIU/L Urine Opiates Screen (NotDetected) Not Detected Ur Oxycodone Screen (NotDetected) Not Detected Urine Methadone Screen (NotDetected) Not Detected Ur Propoxyphene Screen (NotDetected) Not Detected Ur Barbiturates Screen (NotDetected) Not Detected U Tricyclic Antidepress (NotDetected) Not Detected Ur Phencyclidine Scrn (NotDetected) Not Detected Ur Amphetamines Screen (NotDetected) Not Detected U Methamphetamines Scrn (NotDetected) Not Detected U Benzodiazepines Scrn (NotDetected) Not Detected Urine Cocaine Screen (NotDetected) Not Detected U Marijuana (THC) Screen (NotDetected) Detected H Range/Units 02/04/19 07:40 WBC (3.8-10.6) k/uL RBC (4.30-5.90) m/uL Hgb (13.0-17.5) gm/dL Hct (39.0-53.0) % MCV (80.0-100.0) fL MCH (25.0-35.0) pg MCHC (31.0-37.0) g/dL RDW (11.5-15.5) % Plt Count (150-450) k/uL Neutrophils % % Lymphocytes % % Monocytes % % Eosinophils % % Basophils % % Neutrophils # (1.3-7.7) k/uL Lymphocytes # (1.0-4.8) k/uL Monocytes # (0-1.0) k/uL Eosinophils # (0-0.7) k/uL Basophils # (0-0.2) k/uL Sodium (137-145) mmol/L 140 Potassium (3.5-5.1) mmol/L 4.5 Chloride (98-107) mmol/L 104 Carbon Dioxide (22-30) mmol/L 27 Anion Gap mmol/L 9 BUN (9-20) mg/dL 14 Creatinine (0.66-1.25) mg/dL 0.94 Est GFR (CKD-EPI)AfAm (>60 ml/min/1.73 sqM) >90 Est GFR (CKD-EPI)NonAf (>60 ml/min/1.73 sqM) >90 Glucose (74-99) mg/dL [address] Glu mg/dL Hemoglobin A1c (4.0-6.0) % Calcium (8.4-10.2) mg/dL 9.7 Total Bilirubin (0.2-1.3) mg/dL 0.9 AST (17-59) U/L 26 ALT (21-72) U/L 36 Alkaline Phosphatase (38-126) U/L 67 Total Protein (6.3-8.2) g/dL 7.6 Albumin (3.5-5.0) g/dL 4.6 Triglycerides (<150) mg/dL 584 H Cholesterol (<200) mg/dL 217 H LDL Cholesterol, Calc (0-99) mg/dL HDL Cholesterol (40-60) mg/dL 28 L TSH (0.465-4.680) mIU/L 3.550 Urine Opiates Screen (NotDetected) Ur Oxycodone Screen (NotDetected) Urine Methadone Screen (NotDetected) Ur Propoxyphene Screen (NotDetected) Ur Barbiturates Screen (NotDetected) U Tricyclic Antidepress (NotDetected) Ur Phencyclidine Scrn (NotDetected) Ur Amphetamines Screen (NotDetected) U Methamphetamines Scrn (NotDetected) U Benzodiazepines Scrn (NotDetected) Urine Cocaine Screen (NotDetected) U Marijuana (THC) Screen (NotDetected) Procedures: Discharge diagnoses: Major depressive disorder, recurrent, moderate to severe without psychotic features. Anxiety disorder, unspecified. Cannabis use disorder, moderate. Tobacco Use disorder. Plan: Patient will continue follow-up at-. As per discharge plan Continue the following medications: As per discharge plan Patient Condition at Discharge: Stable Patient will be discharge to parent's house Discharge Medication List FLUoxetine HCL [PROzac] 60 mg PO HS 30 Days #90 cap 02/08/19 [Rx] Nicotine 21Mg/24Hr Patch [Habitrol] 1 patch TRANSDERM DAILY 30 Days #30 patch 02/08/19 [Rx] hydrOXYzine PAMOATE [Vistaril] 25 mg PO Q6HR PRN 30 Days #120 cap 02/08/19 [Rx] traZODone HCL [Desyrel] 50 mg PO HS 30 Days #30 tab 02/08/19 [Rx] Patient Condition at Discharge: Stable Plan - Discharge Summary New Discharge Prescriptions: New traZODone HCL [Desyrel] 50 mg PO HS 30 Days #30 tab Nicotine 21Mg/24Hr Patch [Habitrol] 1 patch TRANSDERM DAILY 30 Days #30 patch FLUoxetine HCL [PROzac] 60 mg PO HS 30 Days #90 cap hydrOXYzine PAMOATE [Vistaril] 25 mg PO Q6HR PRN 30 Days #120 cap PRN Reason: Anxiety Discontinued FLUoxetine HCL [PROzac] 40 mg PO HS Discharge Medication List FLUoxetine HCL [PROzac] 60 mg PO HS 30 Days #90 cap 02/08/19 [Rx] Nicotine 21Mg/24Hr Patch [Habitrol] 1 patch TRANSDERM DAILY 30 Days #30 patch 02/08/19 [Rx] hydrOXYzine PAMOATE [Vistaril] 25 mg PO Q6HR PRN 30 Days #120 cap 02/08/19 [Rx] traZODone HCL [Desyrel] 50 mg PO HS 30 Days #30 tab 02/08/19 [Rx] Follow up Appointment(s)/Referral(s): Alberto Sarmiento MD [Primary Care Provider] - 1-2 days Patient Instructions/Handouts: Depression (DC), Suicide Prevention (DC) Activity/Diet/Wound Care/Special Instructions: Labs to be completed after discharge: As clinically indicated by his outpatient psychiatrist and PCP. Discharge checklist for suicide and violence to determine stability: Safety plan was discussed with the patient. Patient denies any current suicidal/ homicidal or violent ideation/plan/ intent. Patient has ability to address stressors/emotions. Patient understands and is comfortable with discharge plan. Outpatient appointments is near [facility] Emergency number (911, crisis number) provided to the patient. Avoid the use of street drugs and alcohol. Take all medications as prescribed. When you are in need of refills please contact your medical provider and/or outpatient psychiatrist to have this done. Please go to scheduled outpatient appointment for aftercare. If symptoms return or become worse call the crisis line at and/or go to the nearest emergency room for an evaluation. Discharge Disposition: HOME SELF-CARE
== END 2019-02-08 13:50 | disposition home or self-care (01) | DRG 885 ==
LOC: EC 12:05 → 3MHU 20:42
PROVIDERS: ADMIT Psychiatry & Neurology Psychiatry; ATTEND Psychiatry & Neurology Psychiatry
DX: F33.2 Major depressive disorder, recurrent severe without psychotic features (principal); R45.851 Suicidal ideations; E78.5 Hyperlipidemia, unspecified; F41.0 Panic disorder [episodic paroxysmal anxiety]; F17.210 Nicotine dependence, cigarettes, uncomplicated; G47.00 Insomnia, unspecified; M54.9 Dorsalgia, unspecified; F12.988 Cannabis use, unspecified with other cannabis-induced disorder; D86.9 Sarcoidosis, unspecified; F90.9 Attention-deficit hyperactivity disorder, unspecified type; Z80.9 Family history of malignant neoplasm, unspecified; Z82.61 Family history of arthritis
CPT/HCPCS: 80053; 80061; 80306; 83036; 84443; 85025; 99285

== ENCOUNTER 2019-12-30 14:19 | Emergency (ER) | payer MEDICAID, OTHER ==
[2019-12-30 14:37] VITALS: TEMP 98.9
[2019-12-30] MEDS ORDERED: SODIUM CHLORIDE 0.9% 1,000 ML IV STA (14:49)
[2019-12-30 14:51] LABS: Glucose,Whole Blood 88 mg/dL (75-99)
--- NOTE | 2019-12-30 14:52 | ED ---
Recheck HPI - General Chief Complaint: Recheck/Abnormal Lab/Rx Stated Complaint: Weakness, Nausea Time Seen by Provider: 12/30/19 14:39 Source: patient, RN notes reviewed, old records reviewed Mode of arrival: wheelchair Limitations: no limitations - History of Present Illness Initial Comments: Patient's a 39-year-old male with a history of sarcoidosis who presents return today for other episodes of grogginess, lightheaded and dizziness. Patient stat es that he woke up this morning and just felt "off". Patient states that he decided to drink some coffee to wake him up it was making him feel any better. Patient states he has not eaten much food today. Patient states that he has no chest pain shortness breath or headache. Denies any coughing nausea or vomiting. Patient states that he has no sensation of room spinning or vertigo. Patient reports he recently had a physical with his PCP and was told that he has hypothyroidism and high triglycerides but has not been started on these medications today would be with the first time he could pick him up from the pharmacy. - Related Data Previous Rx's Medication Instructions Recorded FLUoxetine HCL [PROzac] 60 mg PO HS 30 Days #90 cap 02/08/19 Nicotine 21Mg/24Hr Patch [Habitrol] 1 patch TRANSDERM DAILY 30 Days 02/08/19 #30 patch hydrOXYzine pamoate [Vistaril] 25 mg PO Q6HR PRN 30 Days #120 cap 02/08/19 traZODone HCL [Desyrel] 50 mg PO HS 30 Days #30 tab 02/08/19 Allergies Allergy/AdvReac Type Severity Reaction Status Date / Time No Known Allergies Allergy Verified 12/30/19 14:37 Review of Systems ROS Statement: Those systems with pertinent positive or pertinent negative responses have been documented in the HPI. ROS Other: All systems not noted in ROS Statement are negative. Past Medical History Past Medical History: Hyperlipidemia, Thyroid Disorder Additional Past Medical History / Comment(s): sarcoidosis History of Any Multi-Drug Resistant Organisms: None Reported Additional Past Surgical History / Comment(s): neck biopsy 10/2016, Past Anesthesia/Blood Transfusion Reactions: No Reported Reaction Past Psychological History: ADD/ADHD, Anxiety, Depression Smoking Status: Never smoker Past Alcohol Use History: Occasional Past Drug Use History: Marijuana - Past Family History Mother Family Medical History: Cancer Father Additional Family Medical History / Comment(s): arthritis General Exam - General Exam Comments Initial Comments: Alert and oriented 39-year-old male. No acute distress. Limitations: no limitations General appearance: alert, in no apparent distress Head exam: Present: atraumatic, normocephalic, normal inspection Eye exam: Present: normal appearance, PERRL, EOMI. Absent: scleral icterus, conjunctival injection, periorbital swelling ENT exam: Present: normal exam, mucous membranes moist Neck exam: Present: normal inspection. Absent: tenderness, meningismus, lymphadenopathy Respiratory exam: Present: normal lung sounds bilaterally. Absent: respiratory distress, wheezes, rales, rhonchi, stridor Cardiovascular Exam: Present: regular rate, normal rhythm, normal heart sounds. Absent: systolic murmur, diastolic murmur, rubs, gallop, clicks GI/Abdominal exam: Present: soft, normal bowel sounds. Absent: distended, tenderness, guarding, rebound, rigid Extremities exam: Present: normal inspection, full ROM, normal capillary refill. Absent: tenderness, pedal edema, joint swelling, calf tenderness Neurological exam: Present: alert, oriented X3, CN II-XII intact Psychiatric exam: Present: normal affect, normal mood Skin exam: Present: warm, dry, intact, normal color. Absent: rash Course Vital Signs 12/30/19 12/30/19 12/30/19 14:35 16:05 16:51 Temperature 98.9 F 98.9 F Pulse Rate 65 59 L 59 L Respiratory 16 18 18 Rate Blood Pressure 105/73 102/68 102/68 O2 Sat by Pulse 98 96 96 Oximetry Medical Decision Making - Medical Decision Making This is a 39-year-old male who presents the ER today for evaluation for dizzy lightheadedness today. Patient denies any chest pain headache or other complaints. Patient's labs are reviewed and unremarkable including troponin. EKG shows no acute changes. He does feel better after receiving a liter bolus. He states he feels is just likely somewhat dehydrated. Vital signs are stable. Patient is comfortable with discharge and advise close PCP follow-up if symptoms continue to persist. - Lab Data Result diagrams: 12/30/19 15:11 12/30/19 15:11 Lab Results 12/30/19 12/30/19 12/30/19 Range/Units 14:49 15:11 15:11 WBC 6.0 (3.8-10.6) k/uL RBC 4.77 (4.30-5.90) m/uL Hgb 14.7 (13.0-17.5) gm/dL Hct 44.0 (39.0-53.0) % MCV 92.4 (80.0-100.0) fL MCH 30.9 (25.0-35.0) pg MCHC 33.4 (31.0-37.0) g/dL RDW 12.6 (11.5-15.5) % Plt Count 255 (150-450) k/uL Neutrophils % 67 % Lymphocytes % 19 % Monocytes % 7 % Eosinophils % 5 % Basophils % 1 % Neutrophils # 4.0 (1.3-7.7) k/uL Lymphocytes # 1.1 (1.0-4.8) k/uL Monocytes # 0.4 (0-1.0) k/uL Eosinophils # 0.3 (0-0.7) k/uL Basophils # 0.1 (0-0.2) k/uL PT (9.0-12.0) sec INR (<1.2) APTT (22.0-30.0) sec Sodium (137-145) mmol/L Potassium (3.5-5.1) mmol/L Chloride (98-107) mmol/L Carbon Dioxide (22-30) mmol/L Anion Gap mmol/L BUN (9-20) mg/dL Creatinine (0.66-1.25) mg/dL Est GFR (CKD-EPI)AfAm (>60 ml/min/1.73 sqM) Est GFR (CKD-EPI)NonAf (>60 ml/min/1.73 sqM) Glucose (74-99) mg/dL POC Glucose (mg/dL) 88 (75-99) mg/dL POC Glu Director Ship ID Astrid Lisa Calcium (8.4-10.2) mg/dL Total Bilirubin (0.2-1.3) mg/dL AST (17-59) U/L ALT (4-49) U/L Alkaline Phosphatase (38-126) U/L Troponin I (0.000-0.034) ng/mL Total Protein (6.3-8.2) g/dL Albumin (3.5-5.0) g/dL Urine Color Yellow Urine Appearance Clear (Clear) Urine pH 6.5 (5.0-8.0) Ur Specific [place] 1.014 (1.001-1.035) Urine Protein Negative (Negative) Urine Glucose (UA) Negative (Negative) Urine Ketones Negative (Negative) Urine Blood Negative (Negative) Urine Nitrite Negative (Negative) Urine Bilirubin Negative (Negative) Urine Urobilinogen <2.0 (<2.0) mg/dL Ur Leukocyte Esterase Negative (Negative) 12/30/19 12/30/19 12/30/19 Range/Units 15:11 15:11 15:11 WBC (3.8-10.6) k/uL RBC (4.30-5.90) m/uL Hgb (13.0-17.5) gm/dL Hct (39.0-53.0) % MCV (80.0-100.0) fL MCH (25.0-35.0) pg MCHC (31.0-37.0) g/dL RDW (11.5-15.5) % Plt Count (150-450) k/uL Neutrophils % % Lymphocytes % % Monocytes % % Eosinophils % % Basophils % % Neutrophils # (1.3-7.7) k/uL Lymphocytes # (1.0-4.8) k/uL Monocytes # (0-1.0) k/uL Eosinophils # (0-0.7) k/uL Basophils # (0-0.2) k/uL PT 10.7 (9.0-12.0) sec INR 1.0 (<1.2) APTT 25.5 (22.0-30.0) sec Sodium 137 (137-145) mmol/L Potassium 4.6 (3.5-5.1) mmol/L Chloride 105 (98-107) mmol/L Carbon Dioxide 23 (22-30) mmol/L Anion Gap 9 mmol/L BUN 15 (9-20) mg/dL Creatinine 0.83 (0.66-1.25) mg/dL Est GFR (CKD-EPI)AfAm >90 (>60 ml/min/1.73 sqM) Est GFR (CKD-EPI)NonAf >90 (>60 ml/min/1.73 sqM) Glucose 86 (74-99) mg/dL POC Glucose (mg/dL) (75-99) mg/dL POC Glu Director Ship ID Calcium 9.8 (8.4-10.2) mg/dL Total Bilirubin 1.0 (0.2-1.3) mg/dL AST 32 (17-59) U/L ALT 31 (4-49) U/L Alkaline Phosphatase 61 (38-126) U/L Troponin I <0.012 (0.000-0.034) ng/mL Total Protein 7.8 (6.3-8.2) g/dL Albumin 4.8 (3.5-5.0) g/dL Urine Color Urine Appearance (Clear) Urine pH (5.0-8.0) Ur Specific [place] (1.001-1.035) Urine Protein (Negative) Urine Glucose (UA) (Negative) Urine Ketones (Negative) Urine Blood (Negative) Urine Nitrite (Negative) Urine Bilirubin (Negative) Urine Urobilinogen (<2.0) mg/dL Ur Leukocyte Esterase (Negative) 12/30/19 14:54 EKG performed at 1432 shows normal sinus rhythm septal infarct age undetermined. Abnormal EKG. Ventricular rate of 62 bpm. Was 134 ms. Frustration is 86 ms. QT QTc is 432/438 milliseconds. - Radiology Data Radiology results: report reviewed Patient chest x-rays negative for acute process. Disposition Clinical Impression: Lightheaded, Dehydration Disposition: HOME SELF-CARE Condition: Good Instructions (If sedation given, give patient instructions): Lightheadedness (ED) Additional Instructions: Patient has a close follow-up with primary care doctor is continue to persist. Patient should have extra fluids today and increased snacking. Is patient prescribed a controlled substance at d/c from ED?: No Referrals: Alberto Sarmiento MD [Primary Care Provider] - 1-2 days Time of Disposition: 16:45
[2019-12-30 15:20] LABS: Basophils # (A) 0.1 k/uL (0-0.2); Basophils % (A) 1 %; Eosinophils # (A) 0.3 k/uL (0-0.7); Eosinophils % (A) 5 %; HGB 14.7 gm/dL (13.0-17.5); Lymphocytes # (A) 1.1 k/uL (1.0-4.8); Lymphocytes % (A) 19 %; MCH 30.9 pg (25.0-35.0); MCHC 33.4 g/dL (31.0-37.0); MCV 92.4 fL (80.0-100.0); Mean Platelet Volume 7.5; Monocytes # (A) 0.4 k/uL (0-1.0); Monocytes % (A) 7 %; Neutrophils % (A) 67 %; Platelet Count 255 k/uL (150-450); RBC 4.77 m/uL (4.30-5.90); RDW 12.6 % (11.5-15.5)
[2019-12-30 15:30] LABS: Partial Thromboplastin Time 25.5 sec (22.0-30.0); Prothrombin Time 10.7 sec (9.0-12.0)
[2019-12-30 15:41] LABS: ALT 31 U/L (4-49); AST 32 U/L (17-59); African American GFR (CKD) >90 (>60 ml/min/1.73 sqM); Albumin 4.8 g/dL (3.5-5.0); Alkaline Phosphatase 61 U/L (38-126); Anion Gap 9 mmol/L; Blood Urea Nitrogen 15 mg/dL (9-20); Calcium 9.8 mg/dL (8.4-10.2); Carbon Dioxide 23 mmol/L (22-30); Chloride 105 mmol/L (98-107); Glucose 86 mg/dL (74-99); Non-African American GFR(CKD) >90 (>60 ml/min/1.73 sqM); Sodium 137 mmol/L (137-145); Total Protein 7.8 g/dL (6.3-8.2)
[2019-12-30 15:44] LABS: Appearance,Urine Clear (Clear); Bilirubin,Urine Negative (Negative); Blood,Urine Negative (Negative); Color,Urine Yellow; Glucose,Urine (UA) Negative (Negative); Ketones,Urine Negative (Negative); Leukocyte Esterase,Urine Negative (Negative); Nitrite,Urine Negative (Negative); PH, Urine 6.5 (5.0-8.0); Protein,Urine Negative (Negative); Specific Gravity,Urine 1.014 (1.001-1.035); Urobilinogen,Urine <2.0 mg/dL (<2.0)
--- NOTE | 2019-12-30 15:44 | XR ---
EXAMINATION TYPE: XR chest 2V DATE OF EXAM: 12/30/2019 COMPARISON: 07/28/2017 HISTORY: Weakness TECHNIQUE: 2 views FINDINGS: Heart and mediastinum are normal. Lungs are clear. Diaphragm is normal. Bony thorax appears normal. IMPRESSION: Normal chest. No change.
[2019-12-30 15:49] LABS: Potassium 4.6 mmol/L (3.5-5.1)
[2019-12-30 16:06] VITALS: BP 102/68; PULSE 59; RESP 18
== END 2019-12-30 16:51 | disposition home or self-care (01) ==
LOC: EC 14:19
DX: E86.0 Dehydration (principal); D86.9 Sarcoidosis, unspecified
CPT/HCPCS: 36415; 71046; 80053; 81003; 84484; 85025; 85610; 85730; 93005; 96360; 99285